=== PATIENT | female | born 1950 | race Caucasian/White ===

== ENCOUNTER → 2018-07-19 08:08 | Outpatient (CLI) | payer MEDICARE, SELFPAY | PROVIDERS: PCP Nurse Practitioner Family; Visit Provider Internal Medicine | DX: Q89.3 Situs inversus (principal) | CPT/HCPCS: 93306 ==

== ENCOUNTER → 2018-10-05 12:48 | Outpatient (CLI) | payer MEDICARE, SELFPAY ==
--- NOTE | 2018-10-05 12:52 | XR_ITS ---
XR DEXA axial skeleton HISTORY: ITS.REASON: POST MENOAPUSAL ORDERING PHYSICIAN: Les Petersen MD PATIENT AGE: 68 years COMPARISON: None FINDINGS: The BMD measured at the AP Spine L1-L4 femoral neck is 0.938 g/cm squared with a T score of -2.0. This is considered Osteopenic according to the World Health Organization criteria. Fracture risk is Moderate. Treatment is advised. IMPRESSION: Osteopenia with moderate fracture risk. Suggest treatment and follow-up exam September 2020
== END ==
PROVIDERS: PCP Internal Medicine Adolescent Medicine; Visit Provider Internal Medicine Adolescent Medicine
DX: Z13.820 Encounter for screening for osteoporosis (principal); Z78.0 Asymptomatic menopausal state
CPT/HCPCS: 77080

== ENCOUNTER → 2019-01-02 10:58 | Outpatient (CLI) | payer MEDICARE, SELFPAY ==
[2019-01-02 13:18] LABS: Alanine Aminotransferase 19 U/L (12-78); Alkaline Phosphatase 76 U/L (46-116); Aspartate Amino Transferase 13 U/L (15-37); Bilirubin,Direct 0.1 mg/dL (0.0-0.2); Bilirubin,Indirect 0.2 mg/dL (0.0-0.9); Bilirubin,Total 0.3 mg/dL (0.2-1.0); Cholesterol 216 mg/dL (140-200); HDL Cholesterol 73 mg/dL (29-89); LDL Cholesterol 120 mg/dL (0-130); Total Protein,Serum 7.3 gm/dL (6.4-8.2); Triglycerides 113 mg/dL (30-200); VLDL Cholesterol 23 mg/dL (0-40)
== END ==
PROVIDERS: Visit Provider Nurse Practitioner Family
DX: I65.23 Occlusion and stenosis of bilateral carotid arteries; E78.49 Other hyperlipidemia
CPT/HCPCS: 36415; 80061; 80076

== ENCOUNTER → 2019-03-02 12:51 | Outpatient (CLI) | payer MEDICARE, SELFPAY ==
--- NOTE | 2019-03-02 12:54 | CI_ITS ---
Cerebrovascular Exam Indications: 780.4 Dizziness and giddiness. IMPRESSIONS 1. The bilateral vertebral arteries are patent with normal antegrade flow. 2. Study suggests 20-49% stenosis involving the right internal carotid artery. 3. Study suggests less than 20% stenosis involving the left internal carotid artery. History: Coronary artery disease. Risk factors: Current tobacco use. Hypertension. Hyperlipidemia. Labs, prior tests, procedures, and surgery: Left endarterectomy. Labs, prior tests, procedures, and surgery: Left endarterectomy. Carotid duplex study. Complete study and Doppler flow study including spectral analysis, color and denson scale imaging. Location: Vascular laboratory. Patient status: Outpatient. Tables: Arterial flow: + +--------+--------+ Location V sys V ed + +--------+--------+ Right CCA - proximal 58.9cm/s 17.2cm/s + +--------+--------+ Right CCA - distal 64.3cm/s 19.6cm/s + +--------+--------+ Right ECA 76.6cm/s -------- + +--------+--------+ Right ICA - proximal 79.1cm/s 25cm/s + +--------+--------+ Right ICA - mid 70.6cm/s 22.7cm/s + +--------+--------+ Right ICA - distal 107cm/s 34.2cm/s + +--------+--------+ Right vertebral 53.1cm/s -------- + +--------+--------+ Left CCA - proximal 103cm/s 21cm/s + +--------+--------+ Left CCA - distal 73.5cm/s 23.9cm/s + +--------+--------+ Left ECA 91.8cm/s -------- + +--------+--------+ Left ICA - proximal 52.3cm/s 18.1cm/s + +--------+--------+ Left ICA - mid 70.7cm/s 27.1cm/s + +--------+--------+ Left ICA - distal 92.1cm/s 33.6cm/s + +--------+--------+ Left vertebral 65.4cm/s -------- + +--------+--------+ Velocity ratios: + + + + + + Right, V sys Right, V ed Left, V sys Left, V ed + + + + + + Max ICA/dist CCA 1.66 1.74 1.25 1.41 + + + + + + (Report amended ) Electronically signed by: Rudolph Elizabeth [id number]
== END ==
PROVIDERS: PCP Internal Medicine Adolescent Medicine; Visit Provider Internal Medicine
DX: I65.23 Occlusion and stenosis of bilateral carotid arteries (principal)
CPT/HCPCS: 93880

== ENCOUNTER → 2019-12-19 09:48 | Outpatient (CLI) | payer MEDICARE, SELFPAY ==
[2019-12-19 13:35] LABS: Basophils # 0.1 K/mm3 (0-0.2); Eosinophils # 0.2 K/mm3 (0.0-0.4); Eosinophils % 2.8 % (0.1-12.0); Hematocrit 39.5 % (37.0-47.0); Hemoglobin 12.9 g/dL (12.2-16.2); Lymphocytes % 26.7 % (10-50); Mean Corpuscular HGB Conc 32.6 g/dL (31.8-35.4); Mean Corpuscular Hemoglobin 30.3 pg (27.0-31.2); Mean Corpuscular Volume 92.9 fl (81-99); Mean Platelet Volume 7.4 fl (7.4-10.4); Monocytes # 0.5 K/mm3 (0.1-1.0); Monocytes % 5.9 % (1.7-9.3); Neutrophils # 4.8 K/mm3 (1.8-7.8); Neutrophils % 63.6 % (37.0-80.0); Platelet Count 328 K/mm3 (142-424); Red Blood Count 4.25 M/mm3 (4.20-5.40); Red Cell Distribution Width 12.8 % (11.5-17.5); White Blood Count 7.5 K/mm3 (4.8-10.8)
[2019-12-19 13:52] LABS: Alanine Aminotransferase 17 U/L (12-78); Albumin Level 3.8 gm/dL (3.4-5.0); Albumin/Globulin Ratio 1.3 (1.1-1.8); Alkaline Phosphatase 83 U/L (46-116); Anion Gap 12.3 mEq/L (5-15); Aspartate Amino Transferase 12 U/L (15-37); Bilirubin,Total 0.4 mg/dL (0.2-1.0); Blood Urea Nitrogen 11 mg/dL (7-18); Calcium 9.3 mg/dL (8.5-10.1); Carbon Dioxide 31 mmol/L (21.0-32.0); Chloride 100 mmol/L (98-107); Chol/HDL Ratio 2.9 (1-3.5); Cholesterol 200 mg/dL (140-200); Creatinine,Serum 0.72 mg/dL (0.55-1.02); Estimated Glomerular Filt Rate 81 ml/min (>60); GFR (African American) 97 ML/MIN (>60); Glucose 96 mg/dL (74-106); HDL Cholesterol 68 mg/dL (29-89); LDL Cholesterol 110 mg/dL (0-130); Potassium 3.3 mmoL/L (3.5-5.1); Sodium 140 mmol/L (136-145); Total Protein,Serum 6.8 gm/dL (6.4-8.2); Triglycerides 108 mg/dL (30-200); VLDL Cholesterol 22 mg/dL (0-40)
[2019-12-20 11:58] LABS: Vitamin D 25 Hydroxy 44.5 ng/mL (30.0-100.0)
== END ==
PROVIDERS: Visit Provider Internal Medicine Adolescent Medicine
DX: I25.10 Atherosclerotic heart disease of native coronary artery without angina pectoris (principal); I10 Essential (primary) hypertension; E03.9 Hypothyroidism, unspecified; E55.9 Vitamin D deficiency, unspecified
CPT/HCPCS: 36415; 80053; 80061; 82652; 84443; 85025

== ENCOUNTER → 2021-01-28 13:32 | Outpatient (CLI) | payer MEDICARE, SELFPAY ==
[2021-01-28 14:48] LABS: Chloride 100 mmol/L (98-107); Potassium 3.6 mmoL/L (3.5-5.1); Sodium 137 mmol/L (136-145)
[2021-01-28 14:50] LABS: Alanine Aminotransferase 12 U/L (12-78); Anion Gap 11.6 mEq/L (5-15); Aspartate Amino Transferase 21 U/L (14-36); Bilirubin,Unconjugated 0.3 mg/dL (0.0-1.1); Blood Urea Nitrogen 10 mg/dl (7-17); Carbon Dioxide 29 mmol/L (22.0-30.0); Estimated Glomerular Filt Rate 99 ml/min (>60); GFR (African American) 120 ML/MIN (>60)
[2021-01-28 14:51] LABS: Albumin Level 4.6 g/dl (3.5-5.0); Alkaline Phosphatase 105 U/L (38-126); Basophils # 0.1 K/mm3 (0-0.2); Basophils % 0.6 % (0.1-2.0); Bilirubin,Direct 0.1 mg/dl (0.0-0.4); Bilirubin,Indirect 0.3 mg/dL (0.0-0.9); Bilirubin,Total 0.4 mg/dl (0.2-1.3); Calcium 10.1 mg/dl (8.4-10.2); Chol/HDL Ratio 2.7 (1-3.5); Cholesterol 210 mg/dl (140-200); Eosinophils # 0.1 K/mm3 (0.0-0.4); Eosinophils % 1.5 % (0.1-12.0); Glucose 105 mg/dl (74-100); HDL Cholesterol 78 mg/dl (40-60); Hematocrit 41.4 % (37.0-47.0); Hemoglobin 13.3 g/dL (12.2-16.2); Lymphocytes # 2.4 K/mm3 (0.7-4.5); Lymphocytes % 24.6 % (10-50); Mean Corpuscular HGB Conc 32.2 g/dL (31.8-35.4); Mean Corpuscular Hemoglobin 29.7 pg (27.0-31.2); Mean Corpuscular Volume 92.1 fl (81-99); Monocytes # 0.5 K/mm3 (0.1-1.0); Monocytes % 5.4 % (1.7-9.3); Neutrophils # 6.5 K/mm3 (1.8-7.8); Platelet Count 381 K/mm3 (142-424); Red Blood Count 4.49 M/mm3 (4.20-5.40); Red Cell Distribution Width 13.6 % (11.5-17.5); Total Protein,Serum 7.6 g/dl (6.3-8.2); Triglycerides 136 mg/dl (30-150); VLDL Cholesterol 27 mg/dL (0-40); White Blood Count 9.5 K/mm3 (4.8-10.8)
[2021-01-28 15:04] LABS: Direct LDL Cholesterol 97.59 mg/dL (100-129)
[2021-01-28 15:14] LABS: Free T4 (Free Thyroxine) 1.58 ng/dl (0.78-2.19)
[2021-01-28 15:28] LABS: Thyroid Stimulating Hormone 3.23 uIU/mL (0.465-4.68)
== END ==
PROVIDERS: Visit Provider Internal Medicine
DX: E78.5 Hyperlipidemia, unspecified (principal); F17.200 Nicotine dependence, unspecified, uncomplicated; I11.9 Hypertensive heart disease without heart failure; I25.10 Atherosclerotic heart disease of native coronary artery without angina pectoris; I77.9 Disorder of arteries and arterioles, unspecified; J44.9 Chronic obstructive pulmonary disease, unspecified; Q89.3 Situs inversus; Z95.0 Presence of cardiac pacemaker; I65.23 Occlusion and stenosis of bilateral carotid arteries
CPT/HCPCS: 36415; 80048; 80061; 80076; 84439; 84443; 85025

== ENCOUNTER → 2021-02-06 07:55 | Outpatient (CLI) | payer MEDICARE, SELFPAY ==
--- NOTE | 2021-02-06 07:55 | US_ITS ---
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 PANCREAS: Unremarkable. No obvious mass or abnormal fluid collection. No ductal dilatation LIVER: No focal liver lesions demonstrated. Homogeneous echogenicity. No intrahepatic biliary ductal dilatation evident. There is appropriate direction of blood flow within a non dilated portal vein RIGHT KIDNEY: Unremarkable. Normal size and echogenicity. No hydronephrosis LEFT KIDNEY: Unremarkable. Normal size and echogenicity. No hydronephrosis GALLBLADDER: Cholelithiasis. No gallbladder wall thickening, pericholecystic fluid, or biliary dilatation. AORTA: No evidence of aneurysmal dilatation. SPLEEN: Unremarkable. Normal size and echogenicity ASCITES: None demonstrated. IMPRESSION: 1. Situs inversus. 2. Cholelithiasis Dictated by: Rudolph Elizabeth MD 02/06/2021 15:31 Rudolph Elizabeth MD in [place] 02/06/2021 15:31
--- NOTE | 2021-02-06 08:23 | CA_ITS ---
APPROVED REPORT EXAM: Comprehensive 2D, Doppler, and color-flow Echocardiogram Veneer Patcher: CARLOS Adam, RVS Ht: 5 ft 2 in Wt: 137lbs BSA: 1.63 HR: 66 bpm BP: 151/81 mmHg Rhythm: Pacemaker Indications: Dextrocardia, pacer, situs inversus, SOA, A-fib Echo Enhancing Agent Comments: Technically limited exam with limited windows. 2D Dimensions IVSd 0.98 cm LVEF (Visual) 72.60 % PWd 1.09 cm LA Volume 41.20 mL LVDd 4.50 cm LA Volume Index 25.30 mL/m2 (M/F) 16-34 LVDs 2.63 cm Aortic Root 2.73 cm Left Atrium 3.57 cm LVOT 1.79 cm (M/F) 1.5-2.5 M-Mode Dimensions LA Diam 4.65 cm (1.9-4.0) LVDd 4.66 cm (3.5-5.7) Ao Diam 3.05 cm (2.0-3.7) LVDs 3.05 cm (3.5-5.7) EF (Teich) 63.70% EPSs 0.30 cm FS 34.50% EDV (Teich) 100.30 mL TAPSE 2.10 (<1.7) ESV (Teich) 36.40 mL LV Diastology E Decel Time 210.00 (160-240 msec) E/A Ratio 0.78 MED E' 10.90 (< 7 cm/sec) MED A' 11.00 cm/s E'/MED E' Ratio 6.17 (>14) LAT E' 8.20 (<10 cm/sec) LAT A' 10.40 cm/s E/LAT E' Ratio 8.21 (>14) Aortic Valve AO Peak GR. 7.10 mmHg Mitral Valve MV E Max Jaison. 67.00 (40-130 cm/s) MV A Velocity 87.00 (40-130 cm/s) E/A Ratio 0.78 MV Decel. Time 210.00 (160-240 ms) MV PHT 62.00 ms Pulmonary Valve PV Peak Velocity 97.00 (50-150 cm/s) Tricuspid Valve TR P. Velocity 228.00 cm/s RAP Estimate 10.00 mmHg RVSP 30.70 mmHg Left Ventricle Left atrium is mildly enlarged, left ventricle is normal size, left ventricle wall thickness is upper limit of the normal, there is preserved left ventricular systolic function, visually estimated ejection fraction 55% with no regional wall motion abnormality, grade 1 diastolic dysfunction seen without tissue Doppler evidence of raise left atrial pressure. Right Ventricle Right atrium and right ventricle are normal size and contractility, there is pacemaker leads in the right atrium. Aortic Valve Aortic valve is minimally thickened and fibrosed, there is no aortic stenosis or aortic insufficiency. Mitral Valve Mitral valve is grossly normal, there is trace mitral regurgitation. Tricuspid Valve Tricuspid valve is grossly normal, there is trace tricuspid regurgitation. Pulmonic Valve Pulmonic valve is poorly visualized. Great Vessels Aortic root is normal size. Pericardium No significant pericardial effusion noted. Conclusion 1. Mildly enlarged left atrium, normal left ventricular size, visually estimated ejection fraction 55% with no regional wall motion abnormality, grade 1 diastolic dysfunction seen without tissue Doppler evidence of raise left atrial pressure. 2. Trace mitral and tricuspid regurgitation. 3. No significant pericardial effusion noted. Electronically signed by : Rafael Baez, 02/06/2021 17:00:12
== END ==
PROVIDERS: PCP Nurse Practitioner Family; Visit Provider Internal Medicine
DX: E78.5 Hyperlipidemia, unspecified (principal); F17.200 Nicotine dependence, unspecified, uncomplicated; I11.9 Hypertensive heart disease without heart failure; I25.10 Atherosclerotic heart disease of native coronary artery without angina pectoris; I65.29 Occlusion and stenosis of unspecified carotid artery; I77.9 Disorder of arteries and arterioles, unspecified; J44.9 Chronic obstructive pulmonary disease, unspecified; Q89.3 Situs inversus; Z95.0 Presence of cardiac pacemaker; R19.00 Intra-abdominal and pelvic swelling, mass and lump, unspecified site
CPT/HCPCS: 76700; 93306

== ENCOUNTER 2022-05-13 20:33 | Observation (INO) | payer MEDICARE, SELFPAY ==
--- NOTE | 2022-05-13 12:17 | XR_ITS ---
FINAL REPORT CLINICAL HISTORY: fatigue COMPARISON: September 13, 2018 FINDINGS: Two views of the chest were obtained. There is cardiomegaly. A right subclavian pacemaker is present. The mediastinum is normal. There is mild scarring in the right lung base. The lungs are hyperinflated consistent with COPD. There is no pneumothorax. The bony thorax is intact. IMPRESSION: No acute cardiopulmonary process. Reviewed, Interpreted and Dictated by Saravanan Jay III, MD Transcribed by Gabriela Tyler Authenticated and [facility]
[2022-05-13 12:25] LABS: Basophils # 0.1 K/mm3 (0-0.2); Basophils % 0.4 % (0.1-2.0); Eosinophils # 0.1 K/mm3 (0.0-0.4); Eosinophils % 0.8 % (0.1-12.0); Hemoglobin 12.3 g/dL (12.2-16.2); Lymphocytes # 3.5 K/mm3 (0.7-4.5); Lymphocytes % 23.6 % (10-50); Mean Corpuscular HGB Conc 34.1 g/dL (31.8-35.4); Mean Corpuscular Hemoglobin 29.2 pg (27.0-31.2); Mean Corpuscular Volume 85.6 fl (81-99); Mean Platelet Volume 6.5 fl (7.4-10.4); Monocytes # 1.1 K/mm3 (0.1-1.0); Monocytes % 7.7 % (1.7-9.3); Neutrophils # 9.9 K/mm3 (1.8-7.8); Neutrophils % 67.6 % (37.0-80.0); Platelet Count 399 K/mm3 (142-424); Red Cell Distribution Width 12.5 % (11.5-17.5); White Blood Count 14.7 K/mm3 (4.8-10.8)
[2022-05-13 13:04] LABS: Chloride 88 mmol/L (98-107); Potassium 3.4 mmoL/L (3.5-5.1); Sodium 123 mmol/L (136-145)
[2022-05-13 13:06] LABS: Alanine Aminotransferase 14 U/L (12-78); Anion Gap 7.4 mEq/L (5-15); Aspartate Amino Transferase 20 U/L (14-36); Bilirubin,Unconjugated 0.4 mg/dL (0.0-1.1); Blood Urea Nitrogen 13 mg/dl (7-17); Carbon Dioxide 31 mmol/L (22.0-30.0); Estimated Glomerular Filt Rate 71 ml/min (>60); GFR (African American) 86 ML/MIN (>60)
[2022-05-13 13:07] LABS: Albumin Level 4.1 g/dl (3.5-5.0); Alkaline Phosphatase 80 U/L (38-126); Bilirubin,Indirect 0.4 mg/dL (0.0-0.9); Bilirubin,Total 0.4 mg/dl (0.2-1.3); Calcium 9.5 mg/dl (8.4-10.2); Chol/HDL Ratio 1.9 (1-3.5); Cholesterol 148 mg/dl (140-200); Creatine Kinase 31 U/L (30-135); Glucose 116 mg/dl (74-100); HDL Cholesterol 80 mg/dl (40-60); Magnesium 1.5 mg/dl (1.6-2.3); Total Protein,Serum 6.4 g/dl (6.3-8.2); Triglycerides 159 mg/dl (30-150); VLDL Cholesterol 32 mg/dL (0-40)
[2022-05-13 13:14] LABS: C-Reactive Protein 8.9 mg/L (0-4)
[2022-05-13 13:19] LABS: Direct LDL Cholesterol 45.69 mg/dL (100-129)
[2022-05-13 13:24] LABS: Free T4 (Free Thyroxine) 1.62 ng/dl (0.78-2.19)
[2022-05-13 13:38] LABS: Thyroid Stimulating Hormone 5.85 uIU/mL (0.465-4.68)
[2022-05-13 14:02] LABS: Erythrocyte Sedimentation Rate 12 mm/hr (0-30)
[2022-05-13 20:41] VITALS: BMI 25.4
--- NOTE | 2022-05-13 21:18 | PC.NURSE ---
PT. arrived via wheel chair at this time
[2022-05-13 21:49] VITALS: BP 145/79; PULSE 76; RESP 18; TEMP 36.7; O2SAT 98
[2022-05-13 22:09] LABS: Coronavirus 19, PCR Not Detected (NotDetected); Influenza A, PCR Not Detected (NotDetected); Influenza B, PCR Not Detected (NotDetected)
[2022-05-13 22:22] VITALS: O2SAT 98
--- NOTE | 2022-05-13 22:29 | HMH.HP ---
*Admission Date: 05/13/22 *Chief complaint: weakness *History of present illness: this patient presented to card clinic and was seen with weakness and difficult ambulation and confusion progressive over the last few days -pt was noted to have sig hyponatremia with assoc sx and was admitted for treatment and eval [facility] History I have reviewed the patient's past medical history: Yes Medical History: Reports:: Atrial Fibrillation, Carotid Stenosis, Chronic Obstructive Pulmonary Disease (COPD), Coronary Artery Disease, Hyperlipidemia, Hypertension, Internal Pacemaker, Myocardial Infarction *Have you ever received a pneumonia vaccine?: No *Have you received a flu vaccine this season?: Yes Other Medical History: Reports: Anemia, Fibromyalgia Other Surgeries: Yes: Cardiac Catheterization, Pacemaker, Thyroidectomy (80%), Tubal Ligation, Other ([facility]-No stents, Thyroid Sx, Carotid Endarterectomy) Amputation: No Fractures: No - *Social History Smoking Status: Current every day smoker Tobacco Type: cigarettes # Packs/Day (cigarettes): 1 Alcohol Intake: never Substance Use Type: denies use *Occupational Status:: unemployed Household Members: none *Travel in the last 8 weeks: None Family Hx:: Heart Attack, Coronary Artery Disease Review of Systems - Review of Systems Review of systems:: pertinent systems reviewed and negative unless documented below - Constitutional Reports weakness, Denies fever(s) - Eyes Denies change in vision - ENT Reports dry mouth - *Cardiovascular Reports shortness of breath, Denies chest pain - *Respiratory Denies cough - *Gastrointestinal Denies abdominal pain, Denies loose stools, Denies vomiting - *Genitourinary Denies blood in urine - *Musculoskeletal Reports joint pain, Reports back pain, Reports muscle cramps, Reports muscle weakness, Reports tingling - Integumentary/Breasts Denies rash - *Neurologic Reports confusion, Reports tingling, Reports dizziness, Reports weakness, Denies abnormal speech, Denies seizure-like activity - Psychiatric Reports difficulty concentrating Meds Home Medications Medication Instructions Recorded Confirmed Type alprazolam 0.25 mg tablet 0.25 mg PO TID tab 12/13/17 05/13/22 History amlodipine 10 mg tablet 10 mg PO QDAY 12/13/17 05/13/22 History aspirin 81 mg tablet,delayed 81 mg PO QDAY 12/13/17 05/13/22 History release citalopram 40 mg tablet 40 mg PO QDAY tab 12/13/17 05/13/22 History lisinopril 40 mg tablet 40 mg PO QDAY 12/13/17 05/13/22 History vitamin B complex 1 tab PO QDAY 12/13/17 05/13/22 History folic acid 800 mcg tablet 0.8 mg PO DAILY 09/20/18 05/13/22 History alendronate 35 mg tablet 35 mg PO QWEEK 12/20/18 05/13/22 History cholecalciferol (vitamin D3) 25 1,000 unit PO DAILY 12/20/18 05/13/22 History mcg (1,000 unit) capsule loratadine 10 mg tablet 10 mg PO DAILY 02/21/19 05/13/22 History levothyroxine 25 mcg tablet 75 mcg PO QDAY tab 01/28/21 05/13/22 History Clopidogrel Bisulfate [Plavix] See Rx Instructions .ROUTE .COMPLEX 05/13/22 05/13/22 History Ezetimibe 10 mg PO DAILY 05/13/22 05/13/22 History Triamterene/Hydrochlorothiazid 1 cap PO DAILY 05/13/22 05/13/22 History [Dyazide 37.5/25mg capsule] omeprazole 20 mg capsule,delayed 20 mg PO DAILY cap 05/13/22 05/13/22 History release ropinirole 1 mg tablet 1 mg PO TID tab 05/13/22 05/13/22 History Allergies Allergy/AdvReac Type Severity Reaction Status Date / Time codeine Allergy Mild Verified 05/13/22 11:01 Penicillins Allergy Mild Verified 05/13/22 11:01 diphenhydramine Allergy Verified 05/13/22 11:01 [From Benadryl] pitavastatin [From Livalo] AdvReac Severe not able Verified 05/13/22 11:01 to sleep Weyfrsc-SKV-ArV Reductase AdvReac Mild Verified 05/13/22 11:01 Inhibitor [Mcrhimp-Elz-Khm Reductase Inhibitor] Exam Vital signs and Labs for Last 24 Hours: Temp Pulse Resp BP Pulse Ox 98.0 F 76 18 145/79 H 98 05/13/22
[2022-05-13 23:46] VITALS: BP 105/57; PULSE 66; RESP 18; TEMP 36.7; O2SAT 97
[2022-05-14 03:51] VITALS: BP 116/59; PULSE 69; RESP 18; TEMP 36.6; O2SAT 95
--- NOTE | 2022-05-14 04:26 | PC.NURSE ---
Pt a + o x4. Pt has not voiced any complaints to staff t/o shift. Able to ambulate to BR with standby assist. Call light within reach.
[2022-05-14 04:38] VITALS: BMI 25.6
--- NOTE | 2022-05-14 06:53 | PC.NURSE ---
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 Levothyroxine is not available at this time. Pt is refusing all meds until she is able to take her levothyroxine and pharmacy is able to label her home medications for use.
[2022-05-14 07:07] LABS: Basophils % 0.2 % (0.1-2.0); Eosinophils # 0.1 K/mm3 (0.0-0.4); Hemoglobin 11.1 g/dL (12.2-16.2); Lymphocytes # 3.2 K/mm3 (0.7-4.5); Lymphocytes % 28.7 % (10-50); Mean Corpuscular HGB Conc 34.8 g/dL (31.8-35.4); Mean Corpuscular Hemoglobin 29.6 pg (27.0-31.2); Mean Corpuscular Volume 85.1 fl (81-99); Mean Platelet Volume 6.3 fl (7.4-10.4); Monocytes # 0.9 K/mm3 (0.1-1.0); Monocytes % 8.1 % (1.7-9.3); Neutrophils # 6.9 K/mm3 (1.8-7.8); Neutrophils % 61.9 % (37.0-80.0); Platelet Count 358 K/mm3 (142-424); Red Blood Count 3.76 M/mm3 (4.20-5.40); Red Cell Distribution Width 12.4 % (11.5-17.5); White Blood Count 11.2 K/mm3 (4.8-10.8)
[2022-05-14 07:09] LABS: Chloride 90 mmol/L (98-107)
[2022-05-14 07:10] LABS: Potassium 3.5 mmoL/L (3.5-5.1); Sodium 125 mmol/L (136-145)
[2022-05-14 07:11] LABS: Microscopic, Urine URINE MICROSCOPIC (MICROSCOPIC)
[2022-05-14 07:12] LABS: Appearance,Urine CLEAR (Clear); Bilirubin,Urine Negative (Negative); Blood, Urine Negative (Negative); Color,Urine YELLOW (Yellow); Glucose,Urine (UA) Negative (Negative); Ketones,Urine Negative (Negative); Leukocyte Esterase,Urine Negative (Negative); Nitrate,Urine Negative (Negative); Protein,Urine Negative (Negative); Specific Gravity, Urine <= 1.005 (1.005-1.030); Urobilinogen,Urine 0.2 EU/dl (0.2)
[2022-05-14 07:13] LABS: Anion Gap 8.5 mEq/L (5-15); Blood Urea Nitrogen 14 mg/dl (7-17); Calcium 8.5 mg/dl (8.4-10.2); Carbon Dioxide 30 mmol/L (22.0-30.0); Creatinine Clearance Estimated 52 mL/min (50-200); Estimated Glomerular Filt Rate 71 ml/min (>60); GFR (African American) 86 ML/MIN (>60); Glucose 110 mg/dl (74-100); Magnesium 1.6 mg/dl (1.6-2.3)
[2022-05-14 07:29] LABS: Bacteria,Urine Trace /lpf
--- NOTE | 2022-05-14 07:40 | HMH.PHAVTE ---
[facility] Pharmacy VTE Monitoring - Patient Demographics Admission date: 05/14/22 Report Date: 05/14/22 Time: 07:41 Allergies/Adverse Reactions: Patient Allergies codeine Allergy (Mild, Verified 05/13/22 11:01) Penicillins Allergy (Mild, Verified 05/13/22 11:01) diphenhydramine [From Benadryl] Allergy (Verified 05/13/22 11:01) pitavastatin [From Livalo] Adverse Reaction (Severe, Verified 05/13/22 11:01) not able to sleep Wkhdpch-KCW-OtJ Reductase Inhibitor [Cwgrixo-Hcf-Ypd Reductase Inhibitor] Adverse Reaction (Mild, Verified 05/13/22 11:01) Height: 1.57 m Weight: 63.191 kg Patient Problems: Current Active Problems (Last Updated 06/28/19 @ 13:31 by Ashley Mcgill RN) Acute delirium (Acute) Acquired hypothyroidism (Acute) HTN (hypertension) (Chronic) CAD (coronary artery disease) (Acute) Restless leg syndrome (Acute) Cardiac pacemaker in situ (Chronic) Tobacco use disorder (Chronic) COPD (chronic obstructive pulmonary disease) (Chronic) Hyponatremia (Chronic) Hypokalemia (Chronic) - VTE Risk Labs: VTE Related Lab Results Hgb 11.1 g/dL (12.2-16.2) L 05/14/22 06:50 Hct 32.0 % (37.0-47.0) L 05/14/22 06:50 Plt Count 358 K/mm3 (142-424) 05/14/22 06:50 BUN 14 mg/dl (7-17) 05/14/22 06:50 Creatinine 0.80 mg/dl (0.52-1.04) 05/14/22 06:50 Estimated Creat Clear 52 mL/min (50-200) 05/14/22 06:50 Clinical Trial Participant: No - Prophylaxis VTE Prophylaxis Ordered?: Yes Types of VTE Prophylaxis: TEDS Knee High
--- NOTE | 2022-05-14 07:51 | HMH.PHAINT ---
verified home medication list using list from outpatient pharmacy
[2022-05-14 08:00] VITALS: BP 130/73; PULSE 71; RESP 16; TEMP 37.3; O2SAT 98
--- NOTE | 2022-05-14 08:00 | CA_ITS ---
FINAL REPORT TECHNIQUE: Color Doppler, duplex Doppler and denson scale sonography of the bilateral neck arterial vasculature was performed. Velocities were measured in the carotid arteries. Stenosis evaluation based on the validated velocity criteria. CLINICAL HISTORY: weakness/dizzyness, Hx Left carotid endartectomy., Smoker FINDINGS: The peak systolic velocity of the right common carotid artery is 77 cm/s. The peak systolic velocity of the right internal carotid artery is 112 cm/s and end diastolic velocity 23 cm/s. The ICA/CCA ratio is 1.51. A small amount of plaque is present. The right external carotid artery is patent. The right vertebral artery is patent with antegrade flow. The peak systolic velocity of the left common carotid artery is 102 cm/s. The peak systolic velocity of the left internal carotid artery is 79 cm/s and end diastolic velocity 22 cm/s. The ICA/CCA ratio is 0.84. A small amount of plaque is present. The left external carotid artery is patent.The left vertebral artery is patent with antegrade flow. IMPRESSION: Less than 50% bilateral carotid stenoses. Bilateral patent vertebral arteries with antegrade flow. If indicated, CTA or MRA could further evaluate. Reviewed, Interpreted and Dictated by Saravanan Jay III, MD Transcribed by Gisele Javed Authenticated and [facility]
--- NOTE | 2022-05-14 08:00 | CA_ITS ---
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 2D Dimensions IVSd 1.11 cm LVEF (Visual) 64.00 % PWd 0.93 cm LVDd 3.91 cm LVDs 2.57 cm Aortic Root 2.81 cm Left Atrium 2.59 cm LVOT 1.74 cm (M/F) 1.5-2.5 M-Mode Dimensions LA Diam 3.79 cm (1.9-4.0) Ao Diam 3.47 cm (2.0-3.7) TAPSE 1.79 (<1.7) LV Diastology E Decel Time 263.00 (160-240 msec) E/A Ratio 0.82 MED E' 7.10 (< 7 cm/sec) MED A' 9.20 cm/s E'/MED E' Ratio 8.82 (>14) LAT E' 5.00 (<10 cm/sec) LAT A' 11.30 cm/s E/LAT E' Ratio 12.52 (>14) Aortic Valve AO Peak GR. 5.80 mmHg Mitral Valve MV A Velocity 76.00 (40-130 cm/s) E/A Ratio 0.82 MV Decel. Time 263.00 (160-240 ms) Pulmonary Valve PV Peak Velocity 67.00 (50-150 cm/s) Left Ventricle Left atrium is mildly enlarged, left ventricle is normal size mild concentric left ventricular hypertrophy, estimated ejection fraction 55% with no regional wall motion abnormality, grade 1 diastolic dysfunction seen without tissue Doppler evidence of raise left atrial pressure. Right Ventricle Right atrium and right ventricle are mildly enlarged with normal contractility. Aortic Valve Aortic valve is thickened and calcified there is no aortic stenosis or aortic insufficiency. Mitral Valve Mitral valve is grossly normal, there is trace mitral regurgitation. Tricuspid Valve Tricuspid valve grossly normal, there is trace tricuspid regurgitation, tricuspid regurgitation jet velocity is inadequate for calculation of the right ventricular systolic pressure. Pulmonic Valve Pulmonic valve is poorly visualized. Great Vessels Aortic root is normal size. Inferior vena cava is poorly visualized. Pericardium No significant pericardial effusion noted. Conclusion 1. Mild biatrial enlargement, normal left ventricular size mild concentric left ventricular hypertrophy, estimated ejection fraction 55% with no regional wall motion abnormality, grade 1 diastolic dysfunction seen without tissue Doppler evidence of raise left atrial pressure. 2. Thickened and calcified aortic valve without aortic stenosis aortic insufficiency. 3. Trace mitral and tricuspid regurgitation. 4. No significant pericardial effusion noted. 5. Inferior vena cava is poorly visualized. Electronically signed by : Rafael Baez MD 05/15/2022 11:55:52
--- NOTE | 2022-05-14 09:42 | HMH.CNCARD ---
History of Present Illness Consult date: 05/14/22 Requesting physician: Tyrese Aldrich Chief complaint: hyponatremia Additional Medical History:: Past Medical hx Pacemaker CAD History of present illness: 71 year old female with past medical hx of afib, carotid stenosis, copd, cad, hld, and htn was admitted for hyponatremia with a sodium of 123. patient was in cardiology office yesterday for routine follow up and was complaining of fatigue and generalized weakness. patient had labs drawn yesterday. patient currently on Dyazide 25/37.5. reports has also been pushing fluids at the advice of pcp because was taking levaquin and steroids for pneumonia. Patient was admitted and given fluids, reports is feeling much better. denies cp or soa. sodium today 125 [facility] History Medical History: Reports:: Atrial Fibrillation, Carotid Stenosis, Chronic Obstructive Pulmonary Disease (COPD), Coronary Artery Disease, Hyperlipidemia, Hypertension, Internal Pacemaker, Myocardial Infarction *Have you ever received a pneumonia vaccine?: No *Have you received a flu vaccine this season?: Yes Other Medical History: Reports: Anemia, Fibromyalgia Other Surgeries: Yes: Cardiac Catheterization, Pacemaker, Thyroidectomy (80%), Tubal Ligation, Other ([facility]-No stents, Thyroid Sx, Carotid Endarterectomy) Amputation: No Fractures: No - *Social History Smoking Status: Current every day smoker Tobacco Type: cigarettes # Packs/Day (cigarettes): 1 Alcohol Intake: never Substance Use Type: denies use *Occupational Status:: unemployed Household Members: none *Travel in the last 8 weeks: None Family Hx:: Heart Attack, Coronary Artery Disease Meds Home Medications Medication Instructions Recorded Confirmed Type alprazolam 0.25 mg tablet 0.25 mg PO TID tab 12/13/17 05/13/22 History amlodipine 10 mg tablet 10 mg PO DAILY 12/13/17 05/14/22 History aspirin 81 mg tablet,delayed 81 mg PO DAILY 12/13/17 05/14/22 History release citalopram 40 mg tablet 40 mg PO DAILY tab 12/13/17 05/14/22 History lisinopril 40 mg tablet 40 mg PO DAILY 12/13/17 05/14/22 History vitamin B complex 1 tab PO DAILY 12/13/17 05/14/22 History folic acid 800 mcg tablet 0.8 mg PO DAILY 09/20/18 05/13/22 History cholecalciferol (vitamin D3) 25 1,000 unit PO DAILY 12/20/18 05/13/22 History mcg (1,000 unit) capsule loratadine 10 mg tablet 10 mg PO DAILY 02/21/19 05/13/22 History Clopidogrel Bisulfate [Plavix] 75 mg PO DAILY 05/13/22 05/14/22 History Ezetimibe 10 mg PO DAILY 05/13/22 05/13/22 History Triamterene/Hydrochlorothiazid 1 cap PO DAILY 05/13/22 05/13/22 History [Dyazide 37.5/25mg capsule] omeprazole 20 mg capsule,delayed 20 mg PO DAILY cap 05/13/22 05/13/22 History release ropinirole 1 mg tablet 1 mg PO TID tab 05/13/22 05/13/22 History Alendronate Sodium [Fosamax 70mg 70 mg PO WEEKLY 05/14/22 05/14/22 History Tablet] Levothyroxine Sodium [Synthroid 75 mcg PO DAILY 05/14/22 05/14/22 History 75mcg (0.075mg) tablet] Allergies Allergy/AdvReac Type Severity Reaction Status Date / Time codeine Allergy Mild Verified 05/13/22 11:01 Penicillins Allergy Mild Verified 05/13/22 11:01 diphenhydramine Allergy Verified 05/13/22 11:01 [From Benadryl] pitavastatin [From Livalo] AdvReac Severe not able Verified 05/13/22 11:01 to sleep Xlhwrjn-DIN-NvR Reductase AdvReac Mild Verified 05/13/22 11:01 Inhibitor [Gbskqkq-Zuh-Hda Reductase Inhibitor] Exam Vital signs and Labs for Last 24 Hours: Temp Pulse Resp BP Pulse Ox 99.2 F 71 16 130/73 98 05/14/22 08:00 05/14/22 08:00 05/14/22 08:00 05/14/22 08:00 05/14/22 08:00 Laboratory Results - last 24 hr 05/13/22 12:09: WBC 14.7 H, RBC 4.20, Hgb 12.3, Hct 36.0 L, MCV 85.6, MCH 29.2, MCHC 34.1, RDW 12.5, Plt Count 399, MPV 6.5 L, Neut % (Auto) 67.6, Lymph % (Auto) 23.6, [place] % (Auto) 7.7, Eos % (Auto) 0.8, Baso % (Auto) 0.4, Neut # (Auto) 9.9 H, Lymph # (Auto) 3.5, [place] # (Auto) 1.1
--- NOTE | 2022-05-14 09:49 | HMH.DCSUM ---
General - General Admission date:: 05/13/22 Discharge date: 05/14/22 HPI HPI: this patient presented to card clinic and was seen with weakness and difficult ambulation and confusion progressive over the last few days -pt was noted to have sig hyponatremia with assoc sx and was admitted for treatment and eval Hospital Course Hospital Course: this patient presented to card clinic and was seen with weakness and difficult ambulation and confusion progressive over the last few days -pt was noted to have sig hyponatremia with assoc sx and was admitted for treatment and eval Cardiology has seen and recommends: Hyponatremia - Recommend taking half of dyazide and restricting fluid intake to <1 liter a day - Repeat labs Wednesday. - office follow up in one week. - if symptoms continue or worsen, hold dyazide and call office or go to ER. Hypertension - Half dyazide for now due to above. monitor bp. CV stable: Repeat labs Wednesday, office follow up in one week. 71-year-old female patient sitting up in bed resting quietly with eyes open, she denies any chest pain shortness of breath during the night and reports feeling better this morning. She has received IV fluids during the night and limited p.o. intake. Explained to her fluid restriction of less than 1 L a day and to take one half tab of her Dyazide until seen by PCP, she verbalizes understanding will call cardiology with any further questions. PLAN: 1. Follow-up with PCP in 1 week 2. Follow-up with cardiology in 1 week 3. Labs in 1 week Objective Vital signs: Temp Pulse Resp BP Pulse Ox 99.2 F 71 16 130/73 98 05/14/22 08:00 05/14/22 08:00 05/14/22 08:00 05/14/22 08:00 05/14/22 08:00 no acute distress - *Routine HEENT Exam Head: Present: normocephalic Eye: Present: EOMI ENT: Present: mucous membranes moist - *Routine Neck Exam Present: trachea midline. Absent: tracheal deviation - *Routine Respiratory Exam Present: CTA bilaterally. Absent: accessory muscle use - *Routine Cardiovascular Exam Present: RRR - *Routine Abdominal Exam Present: soft, normoactive bowel sounds. Absent: tenderness, firm - *Routine Extremities Exam Present: full ROM, pulses intact. Absent: cyanosis, clubbing - *Routine Skin Exam Present: intact, dry. Absent: cyanosis, erythema - *Routine Neurological Exam Present: alert, oriented X3. Absent: motor deficit, altered mental status - Routine Psychiatric Exam Present: normal affect, normal thought process. Absent: auditory hallucinations Results Labs on day of discharge: Labs from last 24 hours 05/14/22 05/14/22 05/14/22 06:50 06:50 06:45 WBC 11.2 H RBC 3.76 L Hgb 11.1 L Hct 32.0 L MCV 85.1 MCH 29.6 MCHC 34.8 RDW 12.4 Plt Count 358 MPV 6.3 L Neut % (Auto) 61.9 Lymph % (Auto) 28.7 [place] % (Auto) 8.1 Eos % (Auto) 1.0 Baso % (Auto) 0.2 Neut # (Auto) 6.9 Lymph # (Auto) 3.2 [place] # (Auto) 0.9 Eos # (Auto) 0.1 Baso # (Auto) 0.0 ESR Sodium 125 L Potassium 3.5 Chloride 90 L Carbon Dioxide 30 Anion Gap 8.5 BUN 14 Creatinine 0.80 Estimated Creat Clear 52 Estimated GFR 71 Est GFR ( Amer) 86 Glucose 110 H Calcium 8.5 Magnesium 1.6 Total Bilirubin Direct Bilirubin Conjugated Bilirubin Indirect Bilirubin Unconjugated Bilirubin AST ALT Alkaline Phosphatase Total Creatine Kinase C-Reactive Protein Total Protein Albumin Triglycerides Cholesterol LDL Cholesterol Direct VLDL Cholesterol HDL Cholesterol Cholesterol/HDL Ratio TSH Free T4 Urine Color Yellow Urine Appearance Clear Urine pH 6.0 Ur Specific [place] <= 1.005 Urine Protein Negative Urine Glucose (UA) Negative Urine Ketones Negative Urine Blood Negative Urine Nitrate Negative Urine Bilirubin Negativ
--- NOTE | 2022-05-14 10:39 | HMH.PHAINT ---
DISCHARGE MEDICATION COUNSELING PROVIDED. DISCUSSED STOPPING THE MAXZIDE CAPSULES AND STARTING THE TABLETS, TO TAKE ONE-HALF TABLET DAILY UNTIL SHE FOLLOWS UP WITH CARDIOLOGY. PATIENT ENDORSED NO QUESTIONS AT THIS TIME.
--- NOTE | 2022-05-14 10:57 | PC.NURSE ---
rounded with md on morning rounds. plan for discharge today. encouraged patient to not just drink plain water at this time. to drink things like Gatorade to maintain electrolytes.
[2022-05-27 00:55] LABS: 1,25 Dihydroxy Vitamin D 16 pg/mL (.); 1,25-Dihydroxy, Vitamin D-2 <10 pg/mL (.); 1,25-Dihydroxy, Vitamin D-3 16 pg/mL (.)
== END 2022-05-14 10:52 | disposition home or self-care (01) ==
LOC: 2ND 20:38
PROVIDERS: Admitting Provider Emergency Medicine; PCP Nurse Practitioner Family; Referring Provider Internal Medicine; Visit Provider Emergency Medicine
DX: E78.5 Hyperlipidemia, unspecified (principal); I11.9 Hypertensive heart disease without heart failure; I25.10 Atherosclerotic heart disease of native coronary artery without angina pectoris; I65.23 Occlusion and stenosis of bilateral carotid arteries; I77.9 Disorder of arteries and arterioles, unspecified; J44.9 Chronic obstructive pulmonary disease, unspecified; Z95.0 Presence of cardiac pacemaker; G25.81 Restless legs syndrome; I10 Essential (primary) hypertension; R53.83 Other fatigue; F17.210 Nicotine dependence, cigarettes, uncomplicated; Z79.899 Other long term (current) drug therapy; Z88.8 Allergy status to other drugs, medicaments and biological substances; Z79.01 Long term (current) use of anticoagulants; E03.9 Hypothyroidism, unspecified; N39.0 Urinary tract infection, site not specified; E87.1 Hypo-osmolality and hyponatremia; Z20.822 Contact with and (suspected) exposure to COVID-19
CPT/HCPCS: G0378; G0379; 36415; 71046; 80048; 80061; 80076; 81001; 82550; 82652; 83735; 84439; 84443; 85025; 85651; 86140; 93306; 93880; C9803; U0003; U0005

== ENCOUNTER → 2022-05-25 15:24 | Outpatient (CLI) | payer MEDICARE, SELFPAY ==
[2022-05-25 16:47] LABS: Basophils % 0.4 % (0.1-2.0); Eosinophils % 0.4 % (0.1-12.0); Hematocrit 28.5 % (37.0-47.0); Hemoglobin 10.1 g/dL (12.2-16.2); Lymphocytes # 2.2 K/mm3 (0.7-4.5); Lymphocytes % 25.3 % (10-50); Mean Corpuscular HGB Conc 35.3 g/dL (31.8-35.4); Mean Corpuscular Hemoglobin 29.9 pg (27.0-31.2); Mean Corpuscular Volume 84.7 fl (81-99); Mean Platelet Volume 6.4 fl (7.4-10.4); Monocytes # 0.4 K/mm3 (0.1-1.0); Neutrophils # 5.8 K/mm3 (1.8-7.8); Neutrophils % 68.8 % (37.0-80.0); Platelet Count 433 K/mm3 (142-424); Red Blood Count 3.37 M/mm3 (4.20-5.40); Red Cell Distribution Width 12.8 % (11.5-17.5); White Blood Count 8.5 K/mm3 (4.8-10.8)
[2022-05-25 17:12] LABS: Anion Gap 13.7 mEq/L (5-15); Blood Urea Nitrogen 41 mg/dl (7-17); Carbon Dioxide 28 mmol/L (22.0-30.0); Chloride 88 mmol/L (98-107); Estimated Glomerular Filt Rate 55 ml/min (>60); GFR (African American) 66 ML/MIN (>60); Glucose 125 mg/dl (74-100); Magnesium 2.1 mg/dl (1.6-2.3); Potassium 3.7 mmoL/L (3.5-5.1); Sodium 126 mmol/L (136-145)
== END ==
PROVIDERS: PCP Nurse Practitioner Family; Visit Provider Nurse Practitioner
DX: E78.2 Mixed hyperlipidemia (principal); F17.200 Nicotine dependence, unspecified, uncomplicated; I11.9 Hypertensive heart disease without heart failure; I25.10 Atherosclerotic heart disease of native coronary artery without angina pectoris; I65.23 Occlusion and stenosis of bilateral carotid arteries; I77.9 Disorder of arteries and arterioles, unspecified; J44.9 Chronic obstructive pulmonary disease, unspecified; Q89.3 Situs inversus; R11.2 Nausea with vomiting, unspecified; Z95.0 Presence of cardiac pacemaker; I63.9 Cerebral infarction, unspecified
CPT/HCPCS: 36415; 80048; 83735; 85025

== ENCOUNTER 2022-06-29 13:36 | Emergency (ER) | payer MEDICARE, SELFPAY ==
[2022-06-29] VITALS (9 sets, daily range): BP systolic 118–174; BP diastolic 59–83; PULSE 72–83; RESP 14–20; TEMP 36.7–36.8; O2SAT 88–97; BMI 24.7
--- NOTE | 2022-06-29 14:17 | CT_ITS ---
FINAL REPORT CLINICAL HISTORY: right flank pain. known Situs inversus FINDINGS: Axial CT images of the abdomen and pelvis were obtained without intravenous contrast. Coronal reformatted images were also obtained.This study was performed with techniques to keep radiation doses as low as reasonably achievable (ALARA). Individualized dose reduction techniques using automated exposure control or adjustment of mA and/or kV according to the patient's size were employed. Abdomen: Note is made of situs inversus. The lung bases are clear. There is no evidence of renal stone or hydronephrosis. There are multiple gallstones in the gallbladder. The liver, spleen and pancreas have an unremarkable, unenhanced appearance. No mass or adenopathy is seen. No inflammatory process is identified. There are moderate vascular calcifications. Pelvis: Images of the pelvis reveal no evidence of ureteral dilation or ureteral stone.No mass or abnormal fluid collection is identified. There is wall thickening of the descending colon in the right abdomen with surrounding inflammation which is consistent with colitis. There are bilateral L5 pars defects. There is degenerative change in the lumbar spine. IMPRESSION: No renal or ureteral stone, or hydronephrosis. Wall thickening of the descending colon in the right abdomen with surrounding inflammation, consistent with colitis. Reviewed, Interpreted and Dictated by Saravanan Jay III, MD Transcribed by Gabriela Tyler Authenticated and [facility]
--- NOTE | 2022-06-29 14:25 | PC.NURSE ---
PT GONE TO CT
--- NOTE | 2022-06-29 14:31 | PC.NURSE ---
BACK FROM CT
[2022-06-29 14:32] LABS: Microscopic, Urine URINE MICROSCOPIC (MICROSCOPIC)
[2022-06-29 14:33] LABS: Appearance,Urine CLEAR (Clear); Bilirubin,Urine Negative (Negative); Blood, Urine Negative (Negative); Color,Urine YELLOW (Yellow); Glucose,Urine (UA) Negative (Negative); Ketones,Urine Negative (Negative); Leukocyte Esterase,Urine Negative (Negative); Nitrate,Urine Negative (Negative); Protein,Urine Negative (Negative); Urobilinogen,Urine 0.2 EU/dl (0.2)
[2022-06-29 14:36] LABS: Basophils # 0.1 K/mm3 (0-0.2); Basophils % 0.6 % (0.1-2.0); Eosinophils % 0.2 % (0.1-12.0); Hematocrit 33.7 % (37.0-47.0); Hemoglobin 10.5 g/dL (12.2-16.2); Lymphocytes # 2.5 K/mm3 (0.7-4.5); Lymphocytes % 14.5 % (10-50); Mean Corpuscular Hemoglobin 28.1 pg (27.0-31.2); Mean Corpuscular Volume 90.7 fl (81-99); Mean Platelet Volume 7.7 fl (7.4-10.4); Monocytes % 5.7 % (1.7-9.3); Neutrophils # 13.3 K/mm3 (1.8-7.8); Neutrophils % 78.9 % (37.0-80.0); Platelet Count 487 K/mm3 (142-424); Red Blood Count 3.72 M/mm3 (4.20-5.40); White Blood Count 16.8 K/mm3 (4.8-10.8)
[2022-06-29 14:38] LABS: MANUAL DIFFERENTIAL MANUAL DIFFERENTIAL (MANUAL DIFF)
--- NOTE | 2022-06-29 14:38 | PC.NURSE ---
PT MEDICATED , BLANKET GIVEN SHE IS RESTING LIGHTS OFF , DAUGHTER IS STEPPING OUT AND WILL BE BACK
--- NOTE | 2022-06-29 14:39 | HMH.EDGENADL ---
ED Disposition Clinical Impression: Colitis, Hypokalemia Disposition: Home, Self-Care Condition on Discharge: Good Instructions: DI for Colitis Prescriptions: Hydrocod/Acet 5/325 mg [[place] 5/325mg tablet] 1 tab PO Q6HP PRN #10 tab PRN Reason: Moderate Pain Transmission Status: Sent to [facility] Ciprofloxacin HCl [Cipro 500mg Tab] 500 mg PO BID #20 tab Transmission Status: Pending to [facility] metroNIDAZOLE [metroNIDAZOLE 500mg Tablet] 0 mg PO Q8 #30 tab Transmission Status: Pending to [facility] Ondansetron [Zofran 4mg ODT] 4 mg PO BIDP PRN #10 tab PRN Reason: Nausea Transmission Status: Pending to [facility] Referrals: Dyana Alan [Primary Care Provider] - - Critical Care Critical Care Time: No Attestation: On 06/29/22, the high probability of a clinically significant, sudden or life threatening deterioration of the following system(s) required my full and direct attention, intervention and personal management. The time I documented below is in addition to time spent performing reported procedures but includes the following listed in this critical care notation. Medical Decision Making - Medical Records Medical records reviewed: Yes: I reviewed the patient's medical records. - Lb Inquiry Pt receiving controlled substance: No Vital Signs: 06/29/22 13:38 06/29/22 14:00 06/29/22 14:18 Temperature 98.2 F Temperature Source Oral Pulse Rate 79 83 Pulse Rate [Left Radial] 79 Respiratory Rate 18 Blood Pressure 167/82 H 168/83 H Blood Pressure [Right Arm] 152/82 H Blood Pressure Mean 110 111 Blood Pressure Mean [Right Arm] 105 Blood Pressure Source [Right Arm] Automatic Cuff Blood Pressure Position [Right Arm] Sitting 02 Sat by Pulse Oximetry 97 Oxygen Delivery Method Room Air 06/29/22 14:34 06/29/22 15:01 06/29/22 15:30 Temperature Temperature Source Pulse Rate 83 72 74 Pulse Rate [Left Radial] Respiratory Rate Blood Pressure 174/73 H 122/59 L 118/64 Blood Pressure [Right Arm] Blood Pressure Mean 106 82 82 Blood Pressure Mean [Right Arm] Blood Pressure Source [Right Arm] Blood Pressure Position [Right Arm] 02 Sat by Pulse Oximetry 97 88 L 92 L Oxygen Delivery Method 06/29/22 16:30 06/29/22 17:02 Temperature Temperature Source Pulse Rate 72 76 Pulse Rate [Left Radial] Respiratory Rate 14 Blood Pressure 138/64 138/65 Blood Pressure [Right Arm] Blood Pressure Mean 93 Blood Pressure Mean [Right Arm] Blood Pressure Source [Right Arm] Blood Pressure Position [Right Arm] 02 Sat by Pulse Oximetry 88 L 94 L Oxygen Delivery Method - Lab Data Lab Results 06/29/22 14:15: Urine Color Yellow, Urine Appearance Clear, Urine pH 7.0, Ur Specific [place] 1.010, Urine Protein Negative, Urine Glucose (UA) Negative, Urine Ketones Negative, Urine Blood Negative, Urine Nitrate Negative, Urine Bilirubin Negative, Urine Urobilinogen 0.2, Ur Leukocyte Esterase Negative, Urine RBC None, Urine WBC 3-5, Ur Squamous Epith Cells 10-20, Urine Bacteria Trace 06/29/22 14:15: WBC 16.8 H, RBC 3.72 L, Hgb 10.5 L, Hct 33.7 L, MCV 90.7, MCH 28.1, MCHC 31.0 L, RDW 14.0, Plt Count 487 H, MPV 7.7, Neut % (Auto) 78.9, Lymph % (Auto) 14.5, [place] % (Auto) 5.7, Eos % (Auto) 0.2, Baso % (Auto) 0.6, Neut # (Auto) 13.3 H, Lymph # (Auto) 2.5, [place] # (Auto) 1.0, Eos # (Auto) 0.0, Baso # (Auto) 0.1, Total Counted 100, Neutrophils % (Manual) 73, Lymphocytes % (Manual) 24, Monocytes % (Manual) 3, Platelet Estimate Slight increase, RBC Morphology Normal 06/29/22 14:15: Sodium 132 L, Potassium 2.8 L*, Chloride 95 L, Carbon Dioxide 34 H, Anion Gap 5.8, BUN 5 L, Creatinine 0.80, Estimated Creat Clear 50, Estimated GFR 71, Est GFR ( Amer) 86, Glucose 122 H, Calcium 9.5, Total Bilirubin 0.2, AST 27, ALT 17, Alkaline Phosphatase 114, Troponin I < 0.01, NT-Pro-B Natriuret Pep 595 H, Total Protein 6.9, Albumin 3.9, Globulin
[2022-06-29 14:40] LABS: Alanine Aminotransferase 17 U/L (12-78); Albumin Level 3.9 g/dl (3.5-5.0); Albumin/Globulin Ratio 1.3 (1.1-1.8); Alkaline Phosphatase 114 U/L (38-126); Aspartate Amino Transferase 27 U/L (14-36); Bilirubin,Total 0.2 mg/dl (0.2-1.3); Blood Urea Nitrogen 5 mg/dl (7-17); Calcium 9.5 mg/dl (8.4-10.2); Carbon Dioxide 34 mmol/L (22.0-30.0); Chloride 95 mmol/L (98-107); Creatinine Clearance Estimated 50 mL/min (50-200); Estimated Glomerular Filt Rate 71 ml/min (>60); GFR (African American) 86 ML/MIN (>60); Glucose 122 mg/dl (74-100); Lipase 20 U/L (23-300); Sodium 132 mmol/L (136-145); Total Protein,Serum 6.9 g/dl (6.3-8.2)
[2022-06-29 14:52] LABS: NT Pro Brain Natriuretic Pep. 595 pg/mL (0-125)
[2022-06-29 14:57] LABS: Troponin I < 0.01 ng/ml (0.00-0.034)
--- NOTE | 2022-06-29 14:58 | PC.NURSE ---
rounded on patient patient advised they had no needs at this time
--- NOTE | 2022-06-29 15:02 | XR_ITS ---
FINAL REPORT CLINICAL HISTORY: cough// sitis inversis COMPARISON: 05/13/2022 FINDINGS: A single view of the chest was obtained. Situs inversus is noted. 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 The heart is normal in size. The mediastinum is unremarkable. There is mild right basilar atelectasis or scarring. There is no pleural effusion. There is no pneumothorax. There is no acute osseous abnormality. IMPRESSION: Mild right basilar atelectasis or scarring. Reviewed, Interpreted and Dictated by Saravanan Jay III, MD Transcribed by Koki Patel Authenticated and [facility]
[2022-06-29 15:03] LABS: Anion Gap 5.8 mEq/L (5-15)
[2022-06-29 15:06] LABS: Potassium 2.8 mmoL/L (3.5-5.1)
--- NOTE | 2022-06-29 15:06 | PC.NURSE ---
critical potassium called per lab at this time, notified WAYNE LUGO
[2022-06-29 15:11] LABS: Lymphocytes % 24 % (10-50); Monocytes % 3 % (2-9); Neutrophils % 73 % (42-76); Platelet Estimate Slight Increase; RBC Morphology Normal; Total Cells Counted 100
[2022-06-29 15:16] LABS: Bacteria,Urine Trace /lpf
--- NOTE | 2022-06-29 15:27 | PC.NURSE ---
notified rad of cxr order
--- NOTE | 2022-06-29 15:45 | PC.NURSE ---
XR AT BEDSIDE
--- NOTE | 2022-06-29 16:07 | PC.NURSE ---
PT HAS POTASSIUM HANGING WITH A BAG OF NACL . DAUGHTER AND PT UPDATED
--- NOTE | 2022-06-29 17:04 | PC.NURSE ---
RUN OF POTASSIUM HAS FINISHED NO NEW NEEDS AT THIS TIME
--- NOTE | 2022-06-29 17:23 | PC.NURSE ---
PT AMBULATING TO THE BR
--- NOTE | 2022-06-29 17:36 | PC.NURSE ---
ER at speaking with pt and family
== END 2022-06-29 17:50 | disposition home or self-care (01) ==
PROVIDERS: Emergency Provider Emergency Medicine; PCP Nurse Practitioner Family
DX: K52.9 Noninfective gastroenteritis and colitis, unspecified (principal); E87.6 Hypokalemia
CPT/HCPCS: 71045; 74176; 80053; 81001; 83690; 83880; 84484; 85007; 85025; 96361; 96365; 96375; 99284; J2405

== ENCOUNTER → 2022-07-21 08:02 | Outpatient (CLI) | payer MEDICARE, SELFPAY ==
[2022-07-21 21:08] LABS: Basophils % 0.7 % (0.1-2.0); Eosinophils # 0.1 K/mm3 (0.0-0.4); Eosinophils % 1.6 % (0.1-12.0); Hematocrit 31.5 % (37.0-47.0); Hemoglobin 10.1 g/dL (12.2-16.2); Lymphocytes # 2.2 K/mm3 (0.7-4.5); Lymphocytes % 39.7 % (10-50); Mean Corpuscular HGB Conc 32.1 g/dL (31.8-35.4); Mean Corpuscular Hemoglobin 27.5 pg (27.0-31.2); Mean Corpuscular Volume 85.7 fl (81-99); Mean Platelet Volume 8.7 fl (7.4-10.4); Monocytes # 0.5 K/mm3 (0.1-1.0); Monocytes % 8.4 % (1.7-9.3); Neutrophils # 2.7 K/mm3 (1.8-7.8); Neutrophils % 49.7 % (37.0-80.0); Platelet Count 415 K/mm3 (142-424); Red Blood Count 3.68 M/mm3 (4.20-5.40); Red Cell Distribution Width 14.2 % (11.5-17.5); White Blood Count 5.5 K/mm3 (4.8-10.8)
[2022-07-21 21:14] LABS: Blood Urea Nitrogen 15 mg/dl (7-17); Calcium 9.1 mg/dl (8.4-10.2); Carbon Dioxide 27 mmol/L (22.0-30.0); Chloride 95 mmol/L (98-107); Estimated Glomerular Filt Rate 55 ml/min (>60); GFR (African American) 66 ML/MIN (>60); Glucose 85 mg/dl (74-100); Sodium 130 mmol/L (136-145)
[2022-07-21 21:23] LABS: NT Pro Brain Natriuretic Pep. 163 pg/mL (0-125)
[2022-07-21 21:44] LABS: Thyroid Stimulating Hormone 1.99 uIU/mL (0.465-4.68)
[2022-07-21 22:59] LABS: Hemoglobin A1C 5.8 % (4.0-6.0)
== END ==
PROVIDERS: PCP Family Medicine; Visit Provider Family Medicine
DX: I25.10 Atherosclerotic heart disease of native coronary artery without angina pectoris (principal); R79.89 Other specified abnormal findings of blood chemistry; E87.1 Hypo-osmolality and hyponatremia; E78.41 Elevated Lipoprotein(a); R06.09 Other forms of dyspnea; F17.210 Nicotine dependence, cigarettes, uncomplicated
CPT/HCPCS: 80048; 83036; 83880; 84443; 85025

== ENCOUNTER → 2022-07-29 05:58 | Outpatient (CLI) | payer MEDICARE, SELFPAY ==
[2022-07-29 18:15] LABS: Anion Gap 11.8 mEq/L (5-15); Blood Urea Nitrogen 15 mg/dl (7-17); Calcium 9.2 mg/dl (8.4-10.2); Carbon Dioxide 27 mmol/L (22.0-30.0); Chloride 97 mmol/L (98-107); Estimated Glomerular Filt Rate 49 ml/min (>60); GFR (African American) 59 ML/MIN (>60); Glucose 91 mg/dl (74-100); Potassium 3.8 mmoL/L (3.5-5.1); Sodium 132 mmol/L (136-145)
[2022-07-29 18:25] LABS: NT Pro Brain Natriuretic Pep. 105 pg/mL (0-125)
== END ==
PROVIDERS: PCP Family Medicine; Visit Provider Family Medicine
DX: E87.6 Hypokalemia (principal); I25.10 Atherosclerotic heart disease of native coronary artery without angina pectoris; R79.89 Other specified abnormal findings of blood chemistry; R06.09 Other forms of dyspnea
CPT/HCPCS: 80048; 83880

== ENCOUNTER → 2022-08-07 06:22 | Outpatient (CLI) | payer MEDICARE, SELFPAY ==
[2022-08-07 18:21] LABS: Anion Gap 11.5 mEq/L (5-15); Blood Urea Nitrogen 14 mg/dl (7-17); Calcium 8.6 mg/dl (8.4-10.2); Carbon Dioxide 29 mmol/L (22.0-30.0); Chloride 94 mmol/L (98-107); Estimated Glomerular Filt Rate 71 ml/min (>60); GFR (African American) 86 ML/MIN (>60); Glucose 103 mg/dl (74-100); Potassium 3.5 mmoL/L (3.5-5.1); Sodium 131 mmol/L (136-145)
[2022-08-07 18:30] LABS: NT Pro Brain Natriuretic Pep. 89.1 pg/mL (0-125)
== END ==
PROVIDERS: PCP Family Medicine; Visit Provider Family Medicine
DX: E87.6 Hypokalemia
CPT/HCPCS: 80048; 83880

== ENCOUNTER → 2022-09-01 12:55 | Outpatient (CLI) | payer MEDICARE, SELFPAY ==
[2022-09-01 18:37] LABS: Anion Gap 12.7 mEq/L (5-15); Blood Urea Nitrogen 7 mg/dl (7-17); Calcium 8.7 mg/dl (8.4-10.2); Carbon Dioxide 34 mmol/L (22.0-30.0); Chloride 94 mmol/L (98-107); Estimated Glomerular Filt Rate 71 ml/min (>60); GFR (African American) 86 ML/MIN (>60); Glucose 98 mg/dl (74-100); Sodium 138 mmol/L (136-145)
[2022-09-01 18:44] LABS: Potassium 2.7 mmoL/L (3.5-5.1)
== END ==
PROVIDERS: PCP Family Medicine; Visit Provider Family Medicine
DX: I10 Essential (primary) hypertension (principal)
CPT/HCPCS: 80048

== ENCOUNTER → 2022-09-07 14:45 | Outpatient (CLI) | payer MEDICARE, SELFPAY ==
[2022-09-07 19:35] LABS: Blood Urea Nitrogen 5 mg/dl (7-17); Calcium 8.9 mg/dl (8.4-10.2); Carbon Dioxide 30 mmol/L (22.0-30.0); Chloride 96 mmol/L (98-107); Estimated Glomerular Filt Rate 82 ml/min (>60); GFR (African American) 100 ML/MIN (>60); Glucose 100 mg/dl (74-100); Potassium 3.6 mmoL/L (3.5-5.1)
[2022-09-07 20:58] LABS: Anion Gap 13.6 mEq/L (5-15); Sodium 136 mmol/L (136-145)
== END ==
PROVIDERS: PCP Family Medicine; Visit Provider Family Medicine
DX: E87.6 Hypokalemia (principal)
CPT/HCPCS: 80048

== ENCOUNTER → 2022-12-02 21:30 | Outpatient (CLI) | payer MEDICARE, SELFPAY | PROVIDERS: PCP Family Medicine; Visit Provider Family Medicine | DX: Z20.822 Contact with and (suspected) exposure to COVID-19 (principal) | CPT/HCPCS: C9803; U0003; U0005 ==

== ENCOUNTER → 2022-12-09 06:30 | Outpatient (CLI) | payer MEDICARE, SELFPAY ==
[2022-12-09 17:21] LABS: Basophils # 0.1 K/mm3 (0-0.2); Basophils % 0.7 % (0.1-2.0); Eosinophils # 0.3 K/mm3 (0.0-0.4); Eosinophils % 3.1 % (0.1-12.0); Hematocrit 29.5 % (37.0-47.0); Hemoglobin 9.5 g/dL (12.2-16.2); Lymphocytes # 3.1 K/mm3 (0.7-4.5); Lymphocytes % 30.1 % (10-50); Mean Corpuscular HGB Conc 32.1 g/dL (31.8-35.4); Mean Corpuscular Volume 77.8 fl (81-99); Mean Platelet Volume 7.3 fl (7.4-10.4); Monocytes # 0.7 K/mm3 (0.1-1.0); Monocytes % 6.5 % (1.7-9.3); Neutrophils # 6.1 K/mm3 (1.8-7.8); Neutrophils % 59.6 % (37.0-80.0); Platelet Count 382 K/mm3 (142-424); Red Blood Count 3.78 M/mm3 (4.20-5.40); Red Cell Distribution Width 16.8 % (11.5-17.5); White Blood Count 10.3 K/mm3 (4.8-10.8)
[2022-12-09 17:54] LABS: Chloride 99 mmol/L (98-107); Sodium 134 mmol/L (136-145)
[2022-12-09 17:55] LABS: Potassium 3.2 mmoL/L (3.5-5.1)
[2022-12-09 17:57] LABS: Blood Urea Nitrogen 11 mg/dl (7-17); Estimated Glomerular Filt Rate 40 ml/min (>60); GFR (African American) 49 ML/MIN (>60)
[2022-12-09 17:58] LABS: Anion Gap 10.2 mEq/L (5-15); Calcium 8.2 mg/dl (8.4-10.2); Carbon Dioxide 28 mmol/L (22.0-30.0); Glucose 112 mg/dl (74-100)
== END ==
PROVIDERS: PCP Family Medicine; Visit Provider Family Medicine
DX: R53.1 Weakness (principal); Z20.822 Contact with and (suspected) exposure to COVID-19
CPT/HCPCS: 80048; 85025; C9803; U0003; U0005

== ENCOUNTER → 2022-12-10 01:00 | Outpatient (CLI) | payer MEDICARE, SELFPAY ==
[2022-12-16 15:30] LABS: Blood Urea Nitrogen 6 mg/dl (7-17); Carbon Dioxide 31 mmol/L (22.0-30.0); Chloride 96 mmol/L (98-107); Estimated Glomerular Filt Rate 71 ml/min (>60); GFR (African American) 86 ML/MIN (>60); Glucose 99 mg/dl (74-100); Sodium 131 mmol/L (136-145)
== END ==
PROVIDERS: PCP Family Medicine; Visit Provider Family Medicine
DX: E87.6 Hypokalemia (principal)
CPT/HCPCS: 80048

== ENCOUNTER → 2022-12-16 18:54 | Outpatient (CLI) | payer MEDICARE, SELFPAY | PROVIDERS: PCP Family Medicine; Visit Provider Family Medicine | DX: R53.1 Weakness (principal) ==

== ENCOUNTER → 2023-03-03 23:19 | Outpatient (CLI) | payer MEDICARE, SELFPAY ==
[2023-03-03 17:34] LABS: Basophils # 0.1 K/mm3 (0-0.2); Basophils % 0.7 % (0.1-2.0); Eosinophils # 0.3 K/mm3 (0.0-0.4); Hematocrit 32.2 % (37.0-47.0); Hemoglobin 10.4 g/dL (12.2-16.2); Lymphocytes # 2.8 K/mm3 (0.7-4.5); Lymphocytes % 32.2 % (10-50); Mean Corpuscular HGB Conc 32.4 g/dL (31.8-35.4); Mean Corpuscular Hemoglobin 25.5 pg (27.0-31.2); Mean Corpuscular Volume 78.6 fl (81-99); Mean Platelet Volume 7.7 fl (7.4-10.4); Monocytes # 0.5 K/mm3 (0.1-1.0); Monocytes % 6.2 % (1.7-9.3); Neutrophils # 4.9 K/mm3 (1.8-7.8); Neutrophils % 56.9 % (37.0-80.0); Platelet Count 338 K/mm3 (142-424); Red Cell Distribution Width 17.2 % (11.5-17.5); White Blood Count 8.6 K/mm3 (4.8-10.8)
[2023-03-03 17:55] LABS: Anion Gap 10.4 mEq/L (5-15); Blood Urea Nitrogen 11 mg/dl (7-17); Calcium 8.7 mg/dl (8.4-10.2); Carbon Dioxide 31 mmol/L (22.0-30.0); Chloride 99 mmol/L (98-107); Estimated Glomerular Filt Rate 44 ml/min (>60); GFR (African American) 54 ML/MIN (>60); Glucose 110 mg/dl (74-100); Potassium 4.4 mmoL/L (3.5-5.1); Sodium 136 mmol/L (136-145)
== END ==
PROVIDERS: PCP Family Medicine; Visit Provider Family Medicine
DX: D64.9 Anemia, unspecified (principal); E87.6 Hypokalemia; J31.0 Chronic rhinitis
CPT/HCPCS: 80048; 85025

== ENCOUNTER → 2023-04-27 23:00 | Outpatient (CLI) | payer MEDICARE, SELFPAY ==
[2023-04-27 16:43] LABS: Basophils % 0.4 % (0.1-2.0); Eosinophils # 0.2 K/mm3 (0.0-0.4); Eosinophils % 2.8 % (0.1-12.0); Hematocrit 34.1 % (37.0-47.0); Hemoglobin 10.7 g/dL (12.2-16.2); Lymphocytes # 2.5 K/mm3 (0.7-4.5); Lymphocytes % 34.8 % (10-50); Mean Corpuscular HGB Conc 31.4 g/dL (31.8-35.4); Mean Corpuscular Hemoglobin 25.9 pg (27.0-31.2); Mean Corpuscular Volume 82.6 fl (81-99); Mean Platelet Volume 7.4 fl (7.4-10.4); Monocytes # 0.6 K/mm3 (0.1-1.0); Monocytes % 7.7 % (1.7-9.3); Neutrophils # 3.9 K/mm3 (1.8-7.8); Neutrophils % 54.2 % (37.0-80.0); Platelet Count 396 K/mm3 (142-424); Red Blood Count 4.13 M/mm3 (4.20-5.40); Red Cell Distribution Width 16.4 % (11.5-17.5); White Blood Count 7.2 K/mm3 (4.8-10.8)
[2023-04-27 17:05] LABS: Alanine Aminotransferase 12 U/L (12-78); Albumin/Globulin Ratio 1.5 (1.1-1.8); Alkaline Phosphatase 84 U/L (38-126); Anion Gap 15.1 mEq/L (5-15); Aspartate Amino Transferase 21 U/L (14-36); Bilirubin,Total 0.3 mg/dl (0.2-1.3); Blood Urea Nitrogen 12 mg/dl (7-17); Calcium 8.9 mg/dl (8.4-10.2); Carbon Dioxide 28 mmol/L (22.0-30.0); Chloride 94 mmol/L (98-107); Estimated Glomerular Filt Rate 49 ml/min (>60); GFR (African American) 59 ML/MIN (>60); Globulin 2.6 g/dL (1.3-3.2); Glucose 101 mg/dl (74-100); Potassium 4.1 mmoL/L (3.5-5.1); Sodium 133 mmol/L (136-145); Total Protein,Serum 6.6 g/dl (6.3-8.2)
[2023-04-27 17:37] LABS: Thyroid Stimulating Hormone 4.26 uIU/mL (0.465-4.68)
[2023-04-28 14:01] LABS: T4 (Thyroxine) 10.9 ug/dl (5.53-11.0)
== END ==
PROVIDERS: PCP Family Medicine; Visit Provider Family Medicine
DX: E87.1 Hypo-osmolality and hyponatremia (principal); I25.10 Atherosclerotic heart disease of native coronary artery without angina pectoris; I10 Essential (primary) hypertension
CPT/HCPCS: 80053; 84436; 84443; 85025

== ENCOUNTER → 2023-08-02 15:00 | Outpatient (CLI) | payer MEDICARE, SELFPAY ==
[2023-08-02 17:08] LABS: Alanine Aminotransferase 12 U/L (12-78); Albumin Level 3.7 g/dl (3.5-5.0); Albumin/Globulin Ratio 1.4 (1.1-1.8); Alkaline Phosphatase 115 U/L (38-126); Anion Gap 14.2 mEq/L (5-15); Aspartate Amino Transferase 25 U/L (14-36); Bilirubin,Total 0.3 mg/dl (0.2-1.3); Blood Urea Nitrogen 8 mg/dl (7-17); Carbon Dioxide 28 mmol/L (22.0-30.0); Chloride 96 mmol/L (98-107); Estimated Glomerular Filt Rate 71 ml/min (>60); GFR (African American) 85 ML/MIN (>60); Globulin 2.7 g/dL (1.3-3.2); Glucose 186 mg/dl (74-100); Potassium 3.2 mmoL/L (3.5-5.1); Sodium 135 mmol/L (136-145); Total Protein,Serum 6.4 g/dl (6.3-8.2)
[2023-08-02 17:12] LABS: Basophils % 0.5 % (0.1-2.0); Eosinophils # 0.1 K/mm3 (0.0-0.4); Eosinophils % 1.9 % (0.1-12.0); Hematocrit 36.1 % (37.0-47.0); Hemoglobin 11.2 g/dL (12.2-16.2); Lymphocytes % 28.4 % (10-50); Mean Corpuscular HGB Conc 31.1 g/dL (31.8-35.4); Mean Corpuscular Hemoglobin 25.7 pg (27.0-31.2); Mean Corpuscular Volume 82.5 fl (81-99); Monocytes # 0.4 K/mm3 (0.1-1.0); Neutrophils # 4.5 K/mm3 (1.8-7.8); Neutrophils % 63.2 % (37.0-80.0); Platelet Count 360 K/mm3 (142-424); Red Blood Count 4.38 M/mm3 (4.20-5.40); White Blood Count 7.1 K/mm3 (4.8-10.8)
== END ==
PROVIDERS: PCP Family Medicine; Visit Provider Family Medicine
DX: I25.10 Atherosclerotic heart disease of native coronary artery without angina pectoris (principal)
CPT/HCPCS: 80053; 85025

== ENCOUNTER → 2023-08-03 12:00 | Outpatient (CLI) | payer MEDICARE, SELFPAY ==
[2023-08-03 11:53] LABS: Hemoglobin A1C 5.7 % (4.0-6.0)
== END ==
PROVIDERS: PCP Family Medicine; Visit Provider Family Medicine
DX: R73.09 Other abnormal glucose (principal)
CPT/HCPCS: 83036

== ENCOUNTER 2024-04-24 18:00 | Outpatient (CLI) | payer MEDICARE, SELFPAY ==
[2024-04-24 17:19] LABS: Basophils # 0.1 K/mm3 (0-0.2); Eosinophils # 0.1 K/mm3 (0.0-0.4); Eosinophils % 1.6 % (0.1-12.0); Hematocrit 36.8 % (37.0-47.0); Hemoglobin 11.8 g/dL (12.2-16.2); Lymphocytes # 2.6 K/mm3 (0.7-4.5); Lymphocytes % 38.7 % (10-50); Mean Corpuscular HGB Conc 32.1 g/dL (31.8-35.4); Mean Corpuscular Hemoglobin 29.9 pg (27.0-31.2); Mean Corpuscular Volume 92.9 fl (81-99); Mean Platelet Volume 8.3 fl (7.4-10.4); Monocytes # 0.4 K/mm3 (0.1-1.0); Monocytes % 6.1 % (1.7-9.3); Neutrophils # 3.5 K/mm3 (1.8-7.8); Neutrophils % 52.6 % (37.0-80.0); Platelet Count 271 K/mm3 (142-424); Red Blood Count 3.96 M/mm3 (4.20-5.40); Red Cell Distribution Width 14.4 % (11.5-17.5); White Blood Count 6.7 K/mm3 (4.8-10.8)
[2024-04-24 17:20] LABS: Alanine Aminotransferase 12 U/L (12-78); Albumin Level 3.8 g/dl (3.5-5.0); Albumin/Globulin Ratio 1.5 (1.1-1.8); Alkaline Phosphatase 69 U/L (38-126); Anion Gap 12.1 mEq/L (5-15); Aspartate Amino Transferase 23 U/L (14-36); Bilirubin,Total 0.4 mg/dl (0.2-1.3); Blood Urea Nitrogen 14 mg/dl (7-17); Calcium 9.5 mg/dl (8.4-10.2); Carbon Dioxide 29 mmol/L (22.0-30.0); Chloride 98 mmol/L (98-107); Chol/HDL Ratio 2.7 (1-3.5); Cholesterol 167 mg/dl (140-200); Estimated Glomerular Filt Rate 62 ml/min (>60); GFR (African American) 74 ML/MIN (>60); Globulin 2.6 g/dL (1.3-3.2); Glucose 92 mg/dl (74-100); HDL Cholesterol 62 mg/dl (40-60); Potassium 4.1 mmoL/L (3.5-5.1); Sodium 135 mmol/L (136-145); Total Protein,Serum 6.4 g/dl (6.3-8.2); Triglycerides 63 mg/dl (30-150); VLDL Cholesterol 13 mg/dL (0-40)
[2024-04-24 17:31] LABS: Direct LDL Cholesterol 81.58 mg/dL (100-129)
[2024-04-24 17:51] LABS: Thyroid Stimulating Hormone 7.31 uIU/mL (0.465-4.68)
[2024-04-24 18:10] LABS: Hemoglobin A1C 5.6 % (4.0-6.0)
== END 2024-04-24 23:59 | disposition home or self-care (01) ==
LOC: LAB.DROPOF 04-25 09:27
PROVIDERS: PCP Family Medicine; Visit Provider Family Medicine
DX: I10 Essential (primary) hypertension (principal); E03.9 Hypothyroidism, unspecified; E78.5 Hyperlipidemia, unspecified; F17.210 Nicotine dependence, cigarettes, uncomplicated
CPT/HCPCS: 80050; 80053; 80061; 83036; 84443; 85025

== ENCOUNTER 2024-06-09 12:12 | Outpatient (CLI) | payer MEDICARE, SELFPAY | END 2024-06-09 23:59 | disposition home or self-care (01) | LOC: LAB.DROPOF 06-12 12:17 | PROVIDERS: PCP Family Medicine; Visit Provider Family Medicine | DX: R53.83 Other fatigue (principal) | CPT/HCPCS: 87635 ==

== ENCOUNTER 2024-06-13 17:59 | Outpatient (CLI) | payer MEDICARE, SELFPAY ==
[2024-06-13 17:21] LABS: Basophils # 0.1 K/mm3 (0-0.2); Basophils % 0.8 % (0.1-2.0); Eosinophils # 0.1 K/mm3 (0.0-0.4); Eosinophils % 0.9 % (0.1-12.0); Hematocrit 34.5 % (37.0-47.0); Hemoglobin 11.6 g/dL (12.2-16.2); Lymphocytes # 2.1 K/mm3 (0.7-4.5); Lymphocytes % 26.5 % (10-50); Mean Corpuscular HGB Conc 33.5 g/dL (31.8-35.4); Mean Corpuscular Hemoglobin 31.4 pg (27.0-31.2); Mean Corpuscular Volume 93.8 fl (81-99); Mean Platelet Volume 7.6 fl (7.4-10.4); Monocytes # 0.4 K/mm3 (0.1-1.0); Monocytes % 4.8 % (1.7-9.3); Neutrophils # 5.3 K/mm3 (1.8-7.8); Platelet Count 245 K/mm3 (142-424); Red Blood Count 3.68 M/mm3 (4.20-5.40); Red Cell Distribution Width 14.1 % (11.5-17.5); White Blood Count 7.9 K/mm3 (4.8-10.8)
[2024-06-13 17:30] LABS: Blood Urea Nitrogen 9 mg/dl (7-17); Calcium 9.1 mg/dl (8.4-10.2); Carbon Dioxide 29 mmol/L (22.0-30.0); Chloride 97 mmol/L (98-107); Estimated Glomerular Filt Rate 70 ml/min (>60); GFR (African American) 85 ML/MIN (>60); Glucose 109 mg/dl (74-100); Sodium 131 mmol/L (136-145)
== END 2024-06-13 23:59 | disposition home or self-care (01) ==
LOC: LAB.DROPOF 17:59
PROVIDERS: PCP Family Medicine; Visit Provider Family Medicine
DX: I10 Essential (primary) hypertension (principal)
CPT/HCPCS: 80048; 85025

== ENCOUNTER 2024-07-25 16:57 | Outpatient (CLI) | payer MEDICARE, SELFPAY ==
[2024-07-25 16:47] LABS: Chloride 97 mmol/L (98-107); Sodium 131 mmol/L (136-145)
[2024-07-25 16:48] LABS: Potassium 4.1 mmoL/L (3.5-5.1)
[2024-07-25 16:51] LABS: Anion Gap 8.1 mEq/L (5-15); Blood Urea Nitrogen 10 mg/dl (7-17); Calcium 8.4 mg/dl (8.4-10.2); Carbon Dioxide 30 mmol/L (22.0-30.0); Estimated Glomerular Filt Rate 82 ml/min (>60); GFR (African American) 99 ML/MIN (>60); Glucose 87 mg/dl (74-100)
[2024-07-25 17:23] LABS: Thyroid Stimulating Hormone 3.59 uIU/mL (0.465-4.68)
[2024-07-26 08:56] LABS: HIV (1&2) Antibody Rapid NONREACTIVE (NONREACTIVE)
[2024-07-27 09:28] LABS: HCV Ab Non Reactive (Non Reactive)
== END 2024-07-25 23:59 | disposition home or self-care (01) ==
LOC: LAB.DROPOF 16:57
PROVIDERS: PCP Family Medicine; Visit Provider Family Medicine
DX: E03.9 Hypothyroidism, unspecified (principal); Z11.4 Encounter for screening for human immunodeficiency virus [HIV]; Z11.59 Encounter for screening for other viral diseases; R53.83 Other fatigue; Z13.818 Encounter for screening for other digestive system disorders
CPT/HCPCS: 80048; 84443; 86803; 87389

== ENCOUNTER 2024-10-16 10:00 | Outpatient (CLI) | payer MEDICARE, SELFPAY ==
[2024-10-16 16:28] LABS: Basophils # 0.1 K/mm3 (0-0.2); Basophils % 1.3 % (0.1-2.0); Eosinophils # 0.1 K/mm3 (0.0-0.4); Eosinophils % 1.8 % (0.1-12.0); Hematocrit 38.9 % (37.0-47.0); Hemoglobin 12.7 g/dL (12.2-16.2); Lymphocytes # 2.6 K/mm3 (0.7-4.5); Lymphocytes % 34.7 % (10-50); Mean Corpuscular HGB Conc 32.7 g/dL (31.8-35.4); Mean Corpuscular Volume 91.8 fl (81-99); Mean Platelet Volume 7.9 fl (7.4-10.4); Monocytes # 0.5 K/mm3 (0.1-1.0); Monocytes % 6.5 % (1.7-9.3); Neutrophils # 4.2 K/mm3 (1.8-7.8); Neutrophils % 55.7 % (37.0-80.0); Platelet Count 287 K/mm3 (142-424); Red Blood Count 4.24 M/mm3 (4.20-5.40); Red Cell Distribution Width 13.2 % (11.5-17.5); White Blood Count 7.5 K/mm3 (4.8-10.8)
[2024-10-16 17:00] LABS: Alanine Aminotransferase 11 U/L (12-78); Albumin Level 3.8 g/dl (3.5-5.0); Albumin/Globulin Ratio 1.5 (1.1-1.8); Alkaline Phosphatase 75 U/L (38-126); Anion Gap 7.7 mEq/L (5-15); Aspartate Amino Transferase 20 U/L (14-36); Bilirubin,Total 0.5 mg/dl (0.2-1.3); Blood Urea Nitrogen 16 mg/dl (7-17); Calcium 8.9 mg/dl (8.4-10.2); Carbon Dioxide 32 mmol/L (22.0-30.0); Chloride 98 mmol/L (98-107); Chol/HDL Ratio 2.6 (1-3.5); Cholesterol 189 mg/dl (140-200); Estimated Glomerular Filt Rate 70 ml/min (>60); GFR (African American) 85 ML/MIN (>60); Globulin 2.5 g/dL (1.3-3.2); Glucose 92 mg/dl (74-100); HDL Cholesterol 72 mg/dl (40-60); Potassium 3.7 mmoL/L (3.5-5.1); Sodium 134 mmol/L (136-145); Total Protein,Serum 6.3 g/dl (6.3-8.2); Triglycerides 101 mg/dl (30-150); VLDL Cholesterol 20 mg/dL (0-40)
[2024-10-16 17:11] LABS: Direct LDL Cholesterol 90.84 mg/dL (100-129)
[2024-10-16 17:17] LABS: T4 (Thyroxine) 13.8 ug/dl (5.53-11.0)
[2024-10-16 17:30] LABS: Thyroid Stimulating Hormone 3.76 uIU/mL (0.465-4.68)
== END 2024-10-16 23:59 | disposition home or self-care (01) ==
LOC: LAB.DROPOF 10-17 13:43
PROVIDERS: PCP Family Medicine; Visit Provider Family Medicine
DX: E03.9 Hypothyroidism, unspecified (principal); E78.5 Hyperlipidemia, unspecified
CPT/HCPCS: 80053; 80061; 84436; 84443; 85025

== ENCOUNTER 2025-01-17 13:51 | Outpatient (CLI) | payer MEDICARE, SELFPAY ==
[2025-01-17 17:15] LABS: Basophils # 0.1 K/mm3 (0-0.2); Eosinophils # 0.1 K/mm3 (0.0-0.4); Eosinophils % 1.9 % (0.1-12.0); Hematocrit 37.2 % (37.0-47.0); Hemoglobin 12.2 g/dL (12.2-16.2); Lymphocytes # 2.4 K/mm3 (0.7-4.5); Lymphocytes % 38.7 % (10-50); Mean Corpuscular HGB Conc 32.8 g/dL (31.8-35.4); Mean Corpuscular Hemoglobin 29.8 pg (27.0-31.2); Mean Platelet Volume 9.7 fl (7.4-10.4); Monocytes # 0.5 K/mm3 (0.1-1.0); Monocytes % 7.9 % (1.7-9.3); Neutrophils # 3.1 K/mm3 (1.8-7.8); Neutrophils % 50.3 % (37.0-80.0); Platelet Count 257 K/mm3 (142-424); Red Blood Count 4.09 M/mm3 (4.20-5.40); Red Cell Distribution Width 13.1 % (11.5-17.5); White Blood Count 6.2 K/mm3 (4.8-10.8)
[2025-01-17 19:11] LABS: Albumin Level 4.2 g/dl (3.5-5.0); Chloride 98 mmol/L (98-107); Sodium 135 mmol/L (136-145)
[2025-01-17 19:14] LABS: Alanine Aminotransferase 15 U/L (12-78); Alkaline Phosphatase 74 U/L (38-126); Aspartate Amino Transferase 24 U/L (14-36); Bilirubin,Total 0.4 mg/dl (0.2-1.3); Blood Urea Nitrogen 16 mg/dl (7-17); Carbon Dioxide 31 mmol/L (22.0-30.0); Estimated Glomerular Filt Rate 61 ml/min (>60); GFR (African American) 74 ML/MIN (>60)
[2025-01-17 19:15] LABS: Albumin/Globulin Ratio 1.9 (1.1-1.8); Chol/HDL Ratio 2.8 (1-3.5); Cholesterol 175 mg/dl (140-200); Globulin 2.2 g/dL (1.3-3.2); Glucose 74 mg/dl (74-100); HDL Cholesterol 63 mg/dl (40-60); Total Protein,Serum 6.4 g/dl (6.3-8.2); Triglycerides 74 mg/dl (30-150); VLDL Cholesterol 15 mg/dL (0-40)
[2025-01-17 19:26] LABS: Direct LDL Cholesterol 81.75 mg/dL (100-129)
[2025-01-17 19:46] LABS: Thyroid Stimulating Hormone 4.64 uIU/mL (0.465-4.68)
== END 2025-01-17 23:59 | disposition home or self-care (01) ==
LOC: LAB.DROPOF 01-18 13:46
PROVIDERS: PCP Family Medicine; Visit Provider Family Medicine
DX: E03.9 Hypothyroidism, unspecified (principal); E78.5 Hyperlipidemia, unspecified
CPT/HCPCS: 80053; 80061; 84443; 85025

== ENCOUNTER 2025-02-27 14:34 | Emergency (ER) | payer MEDICARE, SELFPAY ==
[2025-02-27] VITALS (8 sets, daily range): BP systolic 162–191; BP diastolic 78–87; PULSE 60–61; RESP 15–23; TEMP 36.7; O2SAT 95–98; BMI 24.1
--- NOTE | 2025-02-27 14:13 | ED_ITS ---
<Statement entered by Roxane Guzman DO - 02/27/25 23:29> I was consulted by the EVELYN, and we discussed the complexity of the problems being addressed. I approved the treatment and management plan for this patient's care in the emergency department, thus performing a substantive portion of the medical decision making. Roxane Guzman DO Discharge Plan Disposition Patient Disposition: Home, Self-Care Condition: Good Prescriptions Prescriptions: New pantoprazole [Protonix] 40 mg tablet,delayed release (DR/EC) 40 mg PO DAILY Qty: 30 0RF No Action aspirin [Adult Low Dose Aspirin] 81 mg tablet,delayed release (DR/EC) 81 mg PO DAILY vitamin B complex [B Complex-Vitamin B12] tablet 1 tab PO DAILY cholecalciferol (vitamin D3) 1,000 unit capsule 1,000 unit PO DAILY diclofenac sodium 1 % gel 2 g topical QID PRN albuterol sulfate 90 mcg/actuation HFA aerosol inhaler 2 inh inhalation QID PRN (Reason: shortness of breath or wheezing) Qty: 8.5 5RF ipratropium-albuterol 0.5 mg-3 mg(2.5 mg base)/3 mL solution for nebulization 3 ml inhalation QID PRN (Reason: shortness of breath) 30 Days Qty: 180 2RF folic acid 800 mcg tablet 0.8 mg PO DAILY omeprazole 20 mg capsule,delayed release(DR/EC) 20 mg PO DAILY 90 Days Qty: 90 0RF Zyrtec 10 mg capsule 10 mg PO DAILY Qty: 30 5RF azelastine 137 mcg (0.1 %) aerosol,spray 1 spray intranasal BID 30 Days Qty: 30 2RF Rx Instructions: administer into each nostril fluticasone propionate [Flonase Allergy Relief] 50 mcg/actuation spray,suspension 1 spray intranasal DAILY Qty: 16 4RF Rx Instructions: administer into each nostril potassium chloride 10 mEq capsule, extended release See Rx Instructions .ROUTE .COMPLEX Qty: 180 2RF Dose Instruction: TAKE 1 CAPSULE 2 TIMES EACH DAY Rx Instructions: TAKE 1 CAPSULE 2 TIMES EACH DAY Stiolto Respimat 2.5-2.5 mcg/actuation mist 2 puff inhalation DAILY Qty: 4 4RF levothyroxine [Synthroid] 88 mcg tablet 88 mcg PO DAILY Qty: 90 3RF ondansetron 4 mg tablet,disintegrating 4 mg PO BID PRN (Reason: nausea and vomiting) 5 Days Qty: 10 2RF citalopram 40 mg tablet 40 mg PO DAILY 90 Days Qty: 90 0RF hydrocodone-acetaminophen 5-325 mg tablet 1 tab PO BID PRN (Reason: pain) Qty: 10 0RF ezetimibe 10 mg tablet See Rx Instructions .ROUTE .COMPLEX Qty: 90 0RF Dose Instruction: TAKE 1 TABLET 1 TIME EACH DAY FOR HIGH CHOLESTEROL Rx Instructions: TAKE 1 TABLET 1 TIME EACH DAY FOR HIGH CHOLESTEROL lisinopril 20 mg tablet 20 mg PO DAILY 30 Days Qty: 90 0RF clopidogrel 75 mg tablet 75 mg PO DAILY Qty: 90 0RF terazosin 10 mg capsule See Rx Instructions .ROUTE .COMPLEX Qty: 90 0RF Dose Instruction: TAKE 1 CAPSULE 1 TIME EACH DAY Rx Instructions: TAKE 1 CAPSULE 1 TIME EACH DAY metoprolol succinate 25 mg tablet extended release 24 hr 25 mg PO DAILY 90 Days Qty: 90 0RF alendronate 70 mg tablet 70 mg PO WEEKLY 90 Days Qty: 13 0RF furosemide 20 mg tablet 20 mg PO DAILY Qty: 30 2RF ropinirole 1 mg tablet 1 mg PO 5XDAY 90 Days Qty: 150 3RF Rx Instructions: administer 1-3 hours before bedtime alprazolam 0.25 mg tablet 0.25 mg PO TID Qty: 90 3RF Referrals Follow up/Referrals: Esteban Lua II, MD [Staff Physician] - See instructions Kevon Muniz MD [Primary Care Provider] - See instructions Jessee Kenyon MD [Staff Physician] - See instructions Activity Restrictions/Add. Instructions Additional Instructions/Restrictions: Please call and make your appointment with cardiology to reestablish care. I have also referred you to gastroenterology. I have sent in a prescription for Protonix to your pharmacy. Please are taking when you get it. If you have any continued new or worsening signs or symptoms follow-up with your PCP or return to the emergency department as needed Clinical Impressions Clinical Impression: Acute epigastric pain Print Language Print Language: Albanian Discharge ED Provider: Roxane Guzman General Adult HPI <JEAN-PIERRE Mcgill - Last Filed: 02/27/25 18:59> General Chief complaint: Chest Pain Stated complaint: chest pain Time Seen by Provider: 02/27/25 14:36 History of Present Illness HPI narrative: Patient presents via EMS from her PCPs office for epigastric pain. Patient has a longstanding history of coronary artery disease and a pacemaker. She was last evaluated by cardiology over 2 years ago. Patient reports that she had lunch around noon and about 30 minutes later she began having burning epigastric pain that seem to move up into her chest. She went to her PCPs office to get an EKG and she was worried that it may be cardiac in nature. She states that it did not feel like her previous heart attacks however. She did not receive any treatment or take any treatment herself. By the time that the patient arrived here she is pain-free. She denies shortness of breath fever chills hemoptysis hematochezia melena hematemesis hematuria nausea vomiting or diarrhea. Related Data Home Medications ?Medication ?Instructions ?Recorded ?Confirmed aspirin 81 mg tablet,delayed 81 mg PO DAILY heart health 12/13/17 02/27/25 release (Adult Low Dose Aspirin) vitamin B complex (B 1 tab PO DAILY Diet supplement 12/13/17 02/27/25 Complex-Vitamin B12 tablet) folic acid 800 mcg tablet 0.8 mg PO DAILY Supplement 09/20/18 02/27/25 cholecalciferol (vitamin D3) 25 1,000 unit PO DAILY Supplement 12/20/18 02/27/25 mcg (1,000 unit) capsule diclofenac sodium 1 % topical gel 2 g topical QID PRN 12/02/22 02/27/25 Previous Rx's ?Medication ?Instructions ?Recorded fluticasone propionate 50 1 spray intranasal DAILY #16 grams 12/01/22 mcg/actuation nasal spray,suspension (Flonase Allergy Relief) cetirizine 10 mg capsule (Zyrtec) 10 mg PO DAILY #30 caps 03/03/23 omeprazole 20 mg capsule,delayed 20 mg PO DAILY Indigestion 90 days 03/03/23 release #90 caps azelastine 137 mcg (0.1 %) nasal 1 spray intranasal BID 30 days #30 03/22/23 spray mL potassium chloride 10 mEq See Rx Instructions .Route 10/27/23 capsule,extended release .COMPLEX #180 caps tiotropium 2.5 mcg-olodaterol 2.5 2 puff inhalation DAILY #4 grams 04/21/24 mcg/actuation mist for inhalation (Stiolto Respimat) albuterol sulfate 90 mcg/actuation 2 inh inhalation QID PRN shortness 04/24/24 aerosol inhaler of breath or wheezing #8.5 grams ipratropium 0.5 mg-albuterol 3 mg 3 ml inhalation QID PRN shortness 04/24/24 (2.5 mg base)/3 mL nebulization of breath 30 days #180 mL soln Synthroid 88 mcg tablet 88 mcg PO DAILY #90 tabs 07/26/24 (levothyroxine) ondansetron 4 mg disintegrating 4 mg PO BID PRN nausea and 11/10/24 tablet vomiting 5 days #10 tabs citalopram 40 mg tablet 40 mg PO DAILY Anxiety 90 days #90 12/12/24 tabs hydrocodone 5 mg-acetaminophen 325 1 tab PO BID PRN pain #10 tabs 01/24/25 mg tablet alendronate 70 mg tablet 70 mg PO WEEKLY Osteoporosis 01/29/25 prevention 90 days #13 tabs clopidogrel 75 mg tablet 75 mg PO DAILY platelet inhibitor 01/29/25 #90 tabs ezetimibe 10 mg tablet See Rx Instructions .Route 01/29/25 .COMPLEX #90 tabs furosemide 20 mg tablet 20 mg PO DAILY #30 tabs 01/29/25 lisinopril 20 mg tablet 20 mg PO DAILY hypertension 30 01/29/25 days #90 tabs metoprolol succinate 25 mg 25 mg PO DAILY 90 days #90 tabs 01/29/25 tablet,extended release 24 hr ropinirole 1 mg tablet 1 mg PO 5XDAY Restless leg 90 days 01/29/25 #150 tabs terazosin 10 mg capsule See Rx Instructions .Route 01/29/25 .COMPLEX #90 caps pantoprazole 40 mg tablet,delayed 40 mg PO DAILY #30 tabs 02/27/25 release (Protonix) alprazolam 0.25 mg tablet 0.25 mg PO TID Anxiety #90 tabs 02/28/25 Allergies Allergy/AdvReac Type Severity Reaction Status Date / Time codeine Allergy Mild Verified 02/27/25 13:16 Penicillins Allergy Mild Verified 02/27/25 13:16 diphenhydramine (From Allergy Verified 02/27/25 13:16 Benadryl) pitavastatin (From Livalo) AdvReac Severe not able Verified 02/27/25 13:16 to sleep Mxvekub-MHM-VfB Reductase AdvReac Mild Verified 02/27/25 13:16 Inhibitor (Jzkfjlr-Ngl-Xqx Reductase Inhibitor) [facility] <JEAN-PIERRE Mcgill - Last Filed: 02/27/25 18:59> [facility] Disclaimer: The information contained in this section may have been updated after the patient was seen, as this information can be updated by other users. Medical History (Updated 02/27/25 @ 16:35 by JEAN-PIERRE Mcgill) Situs inversus CVA (cerebral vascular accident) Pneumonia Cough Colitis Nausea & vomiting Acute delirium Sinusitis Cardiac pacemaker in situ Tobacco use disorder Hyponatremia Hypokalemia Steroid-induced gastritis Carotid artery stenosis Surgical History H/O tubal ligation H/O thyroidectomy Family History Father Coronary artery disease Mother Cancer Social History Smoking Status: Unknown if ever smoked second hand exposure: No alcohol intake: never substance use type: denies use current occupational status: unemployed Travel in the last 8 weeks: Inside the [place] household members: none Have you lived/traveled outside US in past 30 days?: No Contact w/someone who lives/traveled outside US past 30 days?: No Exposure to someone with infectious disease in past 14 days?: No Do you have a fever (greater than 100.4 F or 38 C)?: No Have you tested positive for COVID-19: No Exposed to someone with COVID-19 in past 14 days?: No Do you have a sore throat?: No Do you have a cough?: No Do you have any weakness?: No Do you have any diarrhea?: No Are you experiencing any unusual bleeding?: No Do you have any muscle aches/pain?: No Do you have any abdominal pain?: No Are you experiencing loss of taste or smell?: No Other Medical History Have you received the Flu Vaccine for this season: Yes Have you received the Pneumonia Vaccine: Yes <JEAN-PIERRE Mcgill - Last Filed: 02/27/25 18:59> ROS Obtained: Yes Systems reviewed as appropriate & no additional complaints except as documented Physical Exam <JEAN-PIERRE Mcgill - Last Filed: 02/27/25 18:59> General General appearance: alert and in no apparent distress Respiratory Respiratory exam: Present normal lung sounds bilaterally Cardiovascular Cardiovascular exam: Present regular rate Neurological Exam Neurological exam: Present alert and oriented X3 Medical Decision Making <JEAN-PIERRE Mcgill - Last Filed: 02/27/25 18:59> Medical Records Medical records reviewed: Yes I reviewed the patient's medical records. Screening: Per USPSTF and CDC recommendations, given the prevalence of disease in our region, it is our hospital?s policy to screen for HIV and viral Hepatitis for all patients aged 18 and over and those with ongoing risk factors. Lb Inquiry Pt receiving controlled substance: No Vital Signs: 02/27/25 14:21 02/27/25 14:41 02/27/25 15:00 Temperature 98.1 F Temperature Source Oral Pulse Rate 60 61 Pulse Rate [Left Radial] 60 Respiratory Rate 17 21 20 Blood Pressure 162/79 H 176/78 H Blood Pressure [Right Arm] 166/87 H Blood Pressure Mean [Right Arm] 113 Blood Pressure Source Blood Pressure Position 02 Sat by Pulse Oximetry 95 98 98 Oxygen Delivery Method Room Air Room Air Room Air 02/27/25 15:20 02/27/25 15:30 02/27/25 16:00 Temperature Temperature Source Pulse Rate 60 60 60 Pulse Rate [Left Radial] Respiratory Rate 15 22 22 Blood Pressure 168/79 H 174/82 H 178/83 H Blood Pressure [Right Arm] Blood Pressure Mean [Right Arm] Blood Pressure Source Blood Pressure Position 02 Sat by Pulse Oximetry 96 96 95 Oxygen Delivery Method Room Air Room Air Room Air 02/27/25 16:30 02/27/25 17:37 Temperature 98.0 F Temperature Source Oral Pulse Rate 61 60 Pulse Rate [Left Radial] Respiratory Rate 21 23 Blood Pressure 191/86 H 183/87 H Blood Pressure [Right Arm] Blood Pressure Mean [Right Arm] Blood Pressure Source Automatic Cuff Blood Pressure Position Sitting 02 Sat by Pulse Oximetry 95 Oxygen Delivery Method Room Air Room Air Lab Data Lab results reviewed: Yes I reviewed the patient's lab results. Lab Results 02/27/25 15:20: WBC 8.3, RBC 3.94 L, Hgb 11.7 L, Hct 35.4 L, MCV 89.8, MCH 29.7, MCHC 33.1, RDW 13.1, Plt Count 288, MPV 9.4, Neut % (Auto) 65.7, Lymph % (Auto) 25.4, Walker % (Auto) 6.6, Eos % (Auto) 1.4, Baso % (Auto) 0.7, Neut # (Auto) 5.4, Lymph # (Auto) 2.1, Walker # (Auto) 0.6, Eos # (Auto) 0.1, Baso # (Auto) 0.1, PT 10.6, INR 0.94, Sodium 139, Potassium 4.0, Chloride 99, Carbon Dioxide 35 H, Anion Gap 9.0, BUN 17, Creatinine 0.90, Estimated Creat Clear 47, Estimated GFR 61, Est GFR ( Amer) 74, Glucose 92, Calcium 8.9, Magnesium 1.8, Total Bilirubin 0.3, AST 29, ALT 12, Alkaline Phosphatase 71, Troponin I < 0.01, Total Protein 7.1, Albumin 4.0, Globulin 3.1, Albumin/Globulin Ratio 1.3, Lipase 79 02/27/25 16:55: Troponin I < 0.01 02/27/25 15:20 02/27/25 15:20 Orders (Tests/Meds): ED MEDICATIONS Discontinued Medications Generic Name Dose Route Start Last Admin Trade Name Julio Cesarq PRN Reason Stop Dose Admin Alprazolam 0.25 mg 02/27/25 16:22 02/27/25 16:37 Alprazolam 0.25mg Tablet PO 02/27/25 16:23 0.25 mg ONCE ONE Administration Ropinirole HCl 1 mg 02/27/25 16:21 02/27/25 16:37 Ropinirole 1mg Tablet PO 02/27/25 16:22 1 mg ONCE ONE Administration Sodium Chloride 25 ml 02/27/25 16:14 02/27/25 16:38 Sodium Chloride 0.9% 25ml Bag IV 02/27/25 16:15 Not Given ONCE ONE ORDERS Category Date Time Status Chest XR 2 view (NOT portable) [XR chest 2V] Stat Exams 02/27/25 14:35 Completed CBC w/Auto Diff [Complete Blood Count Auto Diff] Stat Lab 02/27/25 15:20 Completed CMP [Comprehensive Metabolic Panel] Stat Lab 02/27/25 15:20 Completed INR [Prothrombin Time INR] Stat Lab 02/27/25 15:20 Completed Lipase Stat Lab 02/27/25 15:20 Completed Magnesium Stat Lab 02/27/25 15:20 Completed Trop I [Troponin I] Stat Lab 02/27/25 15:20 Completed Troponin I Q3H Lab 02/27/25 16:55 Completed HEART Score History (anamnesis): Slightly suspicious ECG: Non-specific disturbance Age: >65 years Risk factors: Atherosclerosis history Troponin: </= normal limit HEART Score: 5 Medical Decision Narrative: In summary patient is a 74-year-old female who presents to the emergency department for evaluation of epigastric pain. Patient is hemodynamically stable with a blood pressure of 166/87 heart rate 60 with a paced rhythm on the bedside monitor breathing 17 times a minute satting 95% on room air upon arrival, afebrile at 98.1. Physical exam is remarkable for clear breath sounds heart sounds are heard in the right chest as patient has situs inversus totalis, there is no epigastric tenderness currently there is no chest pain currently on palpation abdomen is soft nontender no rebound no guarding no rigidity.. Differential diagnosis includes ACS versus GERD versus gastritis versus pancreatitis etc. Initial workup will be conducted with hematologic labs twelve-lead EKG plain film chest x-ray. Initial interventions were considered however patient currently is asymptomatic thus deferred for now. Initial workup reviewed by me shows that her hematologic labs are significant for a white count of 8.3 H&H of 11.7 and 35.4 with no neutrophilic shift, INR 0.94, the remainder of her hematologic labs are nonactionable including 2 negative troponins and normal lipase and my informal interpretation of her plain film chest x-ray shows situs inversus but no other acute processes prior to radiology read.. Upon repeat evaluation patient remains pain-free.. Given this patient is appropriate for discharge with follow-up with cardiology for reestablishment of care, referral to gastroenterology for further workup for possible gastrointestinal causes, a prescription for Protonix that was sent to her pharmacy and strict return precautions. Patient verbalized understanding and agreement <Ford Mathew MD - Last Filed: 03/01/25 19:44> Vital Signs: 02/27/25 14:21 02/27/25 14:41 02/27/25 15:00 Temperature 98.1 F Temperature Source Oral Pulse Rate 60 61 Pulse Rate [Left Radial] 60 Respiratory Rate 17 21 20 Blood Pressure 162/79 H 176/78 H Blood Pressure [Right Arm] 166/87 H Blood Pressure Mean [Right Arm] 113 Blood Pressure Source Blood Pressure Position 02 Sat by Pulse Oximetry 95 98 98 Oxygen Delivery Method Room Air Room Air Room Air 02/27/25 15:20 02/27/25 15:30 02/27/25 16:00 Temperature Temperature Source Pulse Rate 60 60 60 Pulse Rate [Left Radial] Respiratory Rate 15 22 22 Blood Pressure 168/79 H 174/82 H 178/83 H Blood Pressure [Right Arm] Blood Pressure Mean [Right Arm] Blood Pressure Source Blood Pressure Position 02 Sat by Pulse Oximetry 96 96 95 Oxygen Delivery Method Room Air Room Air Room Air 02/27/25 16:30 02/27/25 17:37 Temperature 98.0 F Temperature Source Oral Pulse Rate 61 60 Pulse Rate [Left Radial] Respiratory Rate 21 23 Blood Pressure 191/86 H 183/87 H Blood Pressure [Right Arm] Blood Pressure Mean [Right Arm] Blood Pressure Source Automatic Cuff Blood Pressure Position Sitting 02 Sat by Pulse Oximetry 95 Oxygen Delivery Method Room Air Room Air Lab Data Lab Results 02/27/25 15:20: WBC 8.3, RBC 3.94 L, Hgb 11.7 L, Hct 35.4 L, MCV 89.8, MCH 29.7, MCHC 33.1, RDW 13.1, Plt Count 288, MPV 9.4, Neut % (Auto) 65.7, Lymph % (Auto) 25.4, Walker % (Auto) 6.6, Eos % (Auto) 1.4, Baso % (Auto) 0.7, Neut # (Auto) 5.4, Lymph # (Auto) 2.1, Walker # (Auto) 0.6, Eos # (Auto) 0.1, Baso # (Auto) 0.1, PT 10.6, INR 0.94, Sodium 139, Potassium 4.0, Chloride 99, Carbon Dioxide 35 H, Anion Gap 9.0, BUN 17, Creatinine 0.90, Estimated Creat Clear 47, Estimated GFR 61, Est GFR ( Amer) 74, Glucose 92, Calcium 8.9, Magnesium 1.8, Total Bilirubin 0.3, AST 29, ALT 12, Alkaline Phosphatase 71, Troponin I < 0.01, Total Protein 7.1, Albumin 4.0, Globulin 3.1, Albumin/Globulin Ratio 1.3, Lipase 79 02/27/25 16:55: Troponin I < 0.01 Orders (Tests/Meds): ED MEDICATIONS Discontinued Medications Generic Name Dose Route Start Last Admin Trade Name Julio Cesarq PRN Reason Stop Dose Admin Alprazolam 0.25 mg 02/27/25 16:22 02/27/25 16:37 Alprazolam 0.25mg Tablet PO 02/27/25 16:23 0.25 mg ONCE ONE Administration Ropinirole HCl 1 mg 02/27/25 16:21 02/27/25 16:37 Ropinirole 1mg Tablet PO 02/27/25 16:22 1 mg ONCE ONE Administration Sodium Chloride 25 ml 02/27/25 16:14 02/27/25 16:38 Sodium Chloride 0.9% 25ml Bag IV 02/27/25 16:15 Not Given ONCE ONE ORDERS Category Date Time Status Chest XR 2 view (NOT portable) [XR chest 2V] Stat Exams 02/27/25 14:35 Completed CBC w/Auto Diff [Complete Blood Count Auto Diff] Stat Lab 02/27/25 15:20 Completed CMP [Comprehensive Metabolic Panel] Stat Lab 02/27/25 15:20 Completed INR [Prothrombin Time INR] Stat Lab 02/27/25 15:20 Completed Lipase Stat Lab 02/27/25 15:20 Completed Magnesium Stat Lab 02/27/25 15:20 Completed Trop I [Troponin I] Stat Lab 02/27/25 15:20 Completed Troponin I Q3H Lab 02/27/25 16:55 Completed HEART Score HEART Score: 5 Critical Care <JEAN-PIERRE Mcgill - Last Filed: 02/27/25 18:59> Critical Care Time Critical Care Time: No
--- NOTE | 2025-02-27 14:21 | ECG_ITS ---
APPROVED REPORT Exam: Resting ECG HR:60 bpm ECG Measurements Heart Rate 60 AXES AZ 219 P 79 QRSd 97 QRS 32 QT 445 T 86 QTc 445 Conclusion ELECTRONIC ATRIAL PACEMAKER PROBABLE INFERIOR MYOCARDIAL INFARCTION , PROBABLY OLD [35 ms Q WAVE IN II/aVF] No STEMI Electronically signed by : DIANNE PANCHAL, 02/28/2025 06:38:47
--- NOTE | 2025-02-27 14:35 | XR_ITS ---
FINAL REPORT CLINICAL HISTORY: Chest pain states upper abd burning sensation; denies chest pain COMPARISON: 06/29/2022 FINDINGS: PA and lateral views of the chest were obtained. The cardiac and mediastinal silhouettes are within normal limits. Left-sided pacemaker is unchanged. There is dextrocardia and right aortic arch. The lungs are clear. There is no pleural effusion or pneumothorax. No acute osseous abnormality is identified. IMPRESSION: Dextrocardia and right aortic arch. Reviewed, Interpreted and Dictated by Mervat Green MD Transcribed by Gisele Javed Authenticated and [facility]
[2025-02-27 15:33] LABS: Basophils # 0.1 K/mm3 (0-0.2); Basophils % 0.7 % (0.1-2.0); Eosinophils # 0.1 K/mm3 (0.0-0.4); Eosinophils % 1.4 % (0.1-12.0); Hematocrit 35.4 % (37.0-47.0); Hemoglobin 11.7 g/dL (12.2-16.2); Lymphocytes # 2.1 K/mm3 (0.7-4.5); Lymphocytes % 25.4 % (10-50); Mean Corpuscular HGB Conc 33.1 g/dL (31.8-35.4); Mean Corpuscular Hemoglobin 29.7 pg (27.0-31.2); Mean Corpuscular Volume 89.8 fl (81-99); Mean Platelet Volume 9.4 fl (7.4-10.4); Monocytes # 0.6 K/mm3 (0.1-1.0); Monocytes % 6.6 % (1.7-9.3); Neutrophils # 5.4 K/mm3 (1.8-7.8); Neutrophils % 65.7 % (37.0-80.0); Nucleated Red Blood Cells # 0 10^3/uL; Nucleated Red Blood Cells % 0 %; Platelet Count 288 K/mm3 (142-424); Red Blood Count 3.94 M/mm3 (4.20-5.40); Red Cell Distribution Width 13.1 % (11.5-17.5); Red Cell Distribution Width-SD 43.1 fL; White Blood Count 8.3 K/mm3 (4.8-10.8)
[2025-02-27 15:35] LABS: Chloride 99 mmol/L (98-107); Sodium 139 mmol/L (136-145)
[2025-02-27 15:38] LABS: Alanine Aminotransferase 12 U/L (12-78); Albumin/Globulin Ratio 1.3 (1.1-1.8); Alkaline Phosphatase 71 U/L (38-126); Aspartate Amino Transferase 29 U/L (14-36); Bilirubin,Total 0.3 mg/dl (0.2-1.3); Blood Urea Nitrogen 17 mg/dl (7-17); Carbon Dioxide 35 mmol/L (22.0-30.0); Creatinine Clearance Estimated 47 mL/min (50-200); Estimated Glomerular Filt Rate 61 ml/min (>60); GFR (African American) 74 ML/MIN (>60); Globulin 3.1 g/dL (1.3-3.2); Total Protein,Serum 7.1 g/dl (6.3-8.2)
[2025-02-27 15:39] LABS: Calcium 8.9 mg/dl (8.4-10.2); Glucose 92 mg/dl (74-100); Lipase 79 U/L (23-300); Magnesium 1.8 mg/dl (1.6-2.3)
[2025-02-27 15:40] LABS: INR 0.94 (0.9-1.1); Prothrombin Time 10.6 seconds (10.1-12.5)
[2025-02-27 15:53] LABS: Troponin I < 0.01 ng/ml (0.00-0.034)
[2025-02-27] MEDS: ROPINIROLE 1MG TABLET 1 MG PO (16:37)
[2025-02-27] MEDS: ALPRAZolam 0.25MG TABLET 0.25 MG PO (16:37)
[2025-02-27 17:32] LABS: Troponin I < 0.01 ng/ml (0.00-0.034)
== END 2025-02-27 17:39 | disposition home or self-care (01) ==
PROVIDERS: Physician Assistant; Emergency Provider Emergency Medicine; PCP Family Medicine
DX: R10.13 Epigastric pain (principal); R07.9 Chest pain, unspecified; Z95.0 Presence of cardiac pacemaker
CPT/HCPCS: 99284; 71046; 80053; 83690; 83735; 84484; 85025; 85610; 93005

== ENCOUNTER 2025-05-17 16:30 | Outpatient (CLI) | payer MEDICARE, SELFPAY ==
[2025-05-17 21:24] LABS: Hematocrit 35.6 % (37.0-47.0); Hemoglobin 11.7 g/dL (12.2-16.2); Immature Granulocytes % 0.1 %; Mean Corpuscular HGB Conc 32.9 g/dL (31.8-35.4); Mean Corpuscular Hemoglobin 29.5 pg (27.0-31.2); Mean Corpuscular Volume 89.7 fl (81-99); Nucleated Red Blood Cells % 0 %; Platelet Count 238 K/mm3 (142-424); Red Blood Count 3.97 M/mm3 (4.20-5.40); Red Cell Distribution Width-SD 42.3 fL; White Blood Count 6.9 K/mm3 (4.8-10.8)
[2025-05-17 21:53] LABS: Alanine Aminotransferase 9 U/L (12-78); Albumin Level 4.1 g/dl (3.5-5.0); Albumin/Globulin Ratio 1.8 (1.1-1.8); Alkaline Phosphatase 59 U/L (38-126); Anion Gap 13.2 mEq/L (5-15); Aspartate Amino Transferase 19 U/L (14-36); Bilirubin,Total 0.5 mg/dl (0.2-1.3); Blood Urea Nitrogen 17 mg/dl (7-17); Calcium 9.4 mg/dl (8.4-10.2); Carbon Dioxide 31 mmol/L (22.0-30.0); Chloride 93 mmol/L (98-107); Creatinine,Serum 0.90 mg/dl (0.52-1.04); Estimated Glomerular Filt Rate 61 ml/min (>60); GFR (African American) 74 ML/MIN (>60); Globulin 2.3 g/dL (1.3-3.2); Glucose 79 mg/dl (74-100); Potassium 4.2 mmoL/L (3.5-5.1); Sodium 133 mmol/L (136-145); Total Protein,Serum 6.4 g/dl (6.3-8.2)
[2025-05-17 22:21] LABS: Thyroid Stimulating Hormone 2.94 uIU/mL (0.465-4.68)
[2025-05-20 08:10] LABS: Hepatitis B Surface Antigen Negative (Negative)
== END 2025-05-17 23:59 | disposition home or self-care (01) ==
LOC: LAB.DROPOF 05-21 10:36
PROVIDERS: PCP Family Medicine; Visit Provider Family Medicine
DX: I10 Essential (primary) hypertension (principal); E03.9 Hypothyroidism, unspecified; Z11.59 Encounter for screening for other viral diseases
CPT/HCPCS: 80053; 84443; 85025; 87340

== ENCOUNTER 2025-07-27 13:42 | Outpatient (CLI) | payer MEDICARE, SELFPAY ==
--- NOTE | 2025-07-27 13:45 | CA_ITS ---
FINAL REPORT CLINICAL HISTORY: TAWANNA H/o left carotid endartectomy, Afib, CAD, Situs inversus FINDINGS: RIGHT CAROTID: CCA PSV -92 cm/sec ICA PSV -108 cm/sec ICA/CCA PSV ratio -1.2. Comments: Moderate plaque disease is noted. LEFTCAROTID: CCA PSV -90. cm/sec ICA PSV -109. cm/sec ICA/CCA PSV ratio -102. Comments: Moderate plaque disease is noted. Antegrade flow is seen within the vertebral arteries. IMPRESSION: Carotid stenosis classified less than 50% Authenticated and [facility]
--- NOTE | 2025-07-27 14:30 | CA_ITS ---
APPROVED REPORT EXAM: Comprehensive 2D, Doppler, and color-flow Echocardiogram Traffic I Manager: CARLOS Adam, RVS Ht: 5 ft 2 in Wt: 129lbs BSA: 1.59 BP: 120/65 mmHg Indications: CAD, Dextrocardia with situs inversus, PPM, Afib Echo Enhancing Agent Comments: TDS: limited windows 2D Dimensions IVSd 1.55 cm F: 0.6-1.0 LVEF (Visual) 48.60 % PWd 1.32 cm F: 0.6 - 1.0 LVDd 3.33 cm F: 3.9 - 5.3 LVDs 2.76 cm F: 2.2 - 3.5 Left Atrium 2.95 cm F: 2.7 - 3.8 M-Mode Dimensions LA Diam 3.80 cm (1.9-4.0) EPSs 0.54 cm LV Diastology E Decel Time 127 (160-240 msec) E/A Ratio 2.32 MED A' 7.60 cm/s LAT A' 8.60 cm/s Aortic Valve SAUL Index 0.83 cm2/m2 AoV Peak Jaison. 92.0 (50-130 cm/s) AO Peak GR. 3.40 mmHg AO Mean GR. 1.70 (<5 mmHg) AO VTI 15.8 (18-25 cm) SAUL (VTI) 1.34 (2.5-4.5 cm2) Mitral Valve MV A Velocity 35.0 (40-130 cm/s) E/A Ratio 2.32 Left Ventricle History of dextrocardia with situs inversus. The left ventricle is normal size. Left ventricular systolic function is normal. The left ventricular ejection fraction is within the normal range. There is increased left ventricular wall thickness. There is normal LV segmental wall motion. Transmitral Doppler flow pattern suggests impaired LV relaxation. LVEF is 55%. Right Ventricle The right ventricle is mildly dilated. The right ventricular systolic function is normal. Atria The left atrium is mildly dilated. The right atrium size is normal. There is no color Doppler evidence of interatrial shunt. Aortic Valve The aortic valve opens well. There is no hemodynamically significant aortic valvular stenosis. No aortic regurgitation is present. Mitral Valve The mitral valve is normal in structure. No evidence of mitral valve stenosis. Trace mitral regurgitation is present. Tricuspid Valve The tricuspid valve leaflets are thin and pliable. Trace tricuspid regurgitation. There is insufficient TR jet to estimate RVSP. Pulmonic Valve The pulmonary valve is grossly normal in structure. Trace pulmonic valve regurgitation is present. Great Vessels The aortic root is normal in size. IVC is normal in size and collapses >50% with inspiration. Pericardium There is no pericardial effusion. An epicardial fat pad is noted. Other Information Study Quality: Technically Difficult Conclusion Technically difficult study. History of dextrocardia with situs inversus. Normal biventricular systolic function. Mild RV dilation. Mild LA dilation. No significant valvular stenosis or regurgitation. Electronically signed by : Lelia Mckinley MD 07/30/2025 01:51:27
== END 2025-07-27 23:59 | disposition home or self-care (01) ==
LOC: RT 13:43
PROVIDERS: PCP Family Medicine; Visit Provider Physician Assistant
DX: I65.23 Occlusion and stenosis of bilateral carotid arteries (principal); I51.7 Cardiomegaly; I25.10 Atherosclerotic heart disease of native coronary artery without angina pectoris; E78.5 Hyperlipidemia, unspecified; I73.9 Peripheral vascular disease, unspecified; I48.91 Unspecified atrial fibrillation; Z95.0 Presence of cardiac pacemaker; Z98.890 Other specified postprocedural states; Z87.74 Personal history of (corrected) congenital malformations of heart and circulatory system
CPT/HCPCS: 93306; 93880

== ENCOUNTER 2025-08-16 09:25 | Outpatient (CLI) | payer MEDICARE, SELFPAY ==
[2025-08-16 20:29] LABS: Hematocrit 35.4 % (37.0-47.0); Hemoglobin 11.5 g/dL (12.2-16.2); Immature Granulocytes % 0.3 %; Mean Corpuscular HGB Conc 32.5 g/dL (31.8-35.4); Mean Corpuscular Hemoglobin 30.5 pg (27.0-31.2); Mean Corpuscular Volume 93.9 fl (81-99); Nucleated Red Blood Cells % 0 %; Platelet Count 290 K/mm3 (142-424); Red Blood Count 3.77 M/mm3 (4.20-5.40); Red Cell Distribution Width-SD 43.8 fL; White Blood Count 7.0 K/mm3 (4.8-10.8)
[2025-08-16 20:59] LABS: Alanine Aminotransferase 8 U/L (12-78); Albumin Level 3.5 g/dl (3.5-5.0); Albumin/Globulin Ratio 1.5 (1.1-1.8); Alkaline Phosphatase 93 U/L (38-126); Anion Gap 11.9 mEq/L (5-15); Aspartate Amino Transferase 18 U/L (14-36); Bilirubin,Total 0.6 mg/dl (0.2-1.3); Blood Urea Nitrogen 9 mg/dl (7-17); Calcium 8.8 mg/dl (8.4-10.2); Carbon Dioxide 30 mmol/L (22.0-30.0); Chloride 99 mmol/L (98-107); Cholesterol 153 mg/dl (140-200); Creatinine,Serum 0.80 mg/dl (0.52-1.04); Estimated Glomerular Filt Rate 70 ml/min (>60); GFR (African American) 85 ML/MIN (>60); Globulin 2.3 g/dL (1.3-3.2); Glucose 58 mg/dl (74-100); HDL Cholesterol 45 mg/dl (40-60); Potassium 3.9 mmoL/L (3.5-5.1); Sodium 137 mmol/L (136-145); Total Protein,Serum 5.8 g/dl (6.3-8.2); Triglycerides 96 mg/dl (30-150)
[2025-08-16 21:14] LABS: 25-OH Vitamin D, Total 29.8 ng/mL (30-100)
[2025-08-16 21:28] LABS: Thyroid Stimulating Hormone 2.52 uIU/mL (0.465-4.68)
[2025-08-16 21:51] LABS: Vitamin B12 700 pg/mL (239-931)
== END 2025-08-16 23:59 ==
LOC: LAB.DROPOF 08-17 10:33
PROVIDERS: PCP Family Medicine; Visit Provider Family Medicine
DX: E03.9 Hypothyroidism, unspecified (principal); I10 Essential (primary) hypertension; E55.9 Vitamin D deficiency, unspecified; E78.5 Hyperlipidemia, unspecified
CPT/HCPCS: 80053; 80061; 82306; 82607; 84443; 85025